=== PATIENT | female | born 1935 | race Caucasian/White ===

== ENCOUNTER 2017-05-10 14:40 | Inpatient (IN) | payer OTHER, BC ==
[~2017-05-10] VITALS: Ht 157.5 cm; Wt 59.6 kg
[2017-05-10] MEDS ORDERED: SODIUM CHLORIDE 0.9% 1000ML 1,000 ML IV STA (15:27)
[2017-05-10] MEDS ORDERED: SODIUM CHLORIDE 0.9% 250ML 250 ML IV STA (15:27)
--- NOTE | 2017-05-10 15:36 | EMERGENCY ROOM VISIT NOTE ---
History Report prepared by Laura: David Mcintosh Under the Supervision of: Dr. Norah Elena M.D. First contact with patient: 15:20 Chief Complaint: FALL Stated Complaint: FALL MONDAY NIGHT, WEAKNESS, DIARRHEA History of Present Illness The patient is an 82 year old female who presents to the Emergency Room with complaints of feeling generally unwell and "lousy" with vomiting for the past two days. Per the patient's daughter, the patient got up from sleep on Monday night, two days ago and tried to go to the bathroom. On her way to the restroom the patient experienced a mechanical fall. She denies any immediate injuries from the fall, and did not hit her head. The patient's son-in-law notes that the patient vomited a small amount on the fall and it looked like "espresso colored." The daughter and son have both noticed loose and black stools over the past two days as well. The daughter added that the patient has been very tired for the past two days and is sleeping most of the day. She did have a blood transfusion in the 1970s and contracted Hep C. The patient has not vomited since the fall, aside from small amounts of mucous. The patient is currently living with her daughter and son-in-law after losing her a few weeks ago. Source of History: patient, family Onset: 2 days IT COMPLIANCE MANAGER Position: other (GI) Quality: other (Black vomit) Associated Symptoms: + fatigue, No headache Note: Mechanical fall Review of Systems See HPI for pertinent positives & negatives. A total of 10 systems reviewed and were otherwise negative. Past Medical & Surgical Medical Problems: (1) Cataract, right eye (2) Chronic hepatitis C (3) COPD (chronic obstructive pulmonary disease) (4) DM II (diabetes mellitus, type II), controlled (5) H/O cataract (6) HTN (hypertension) (7) Lewy body dementia with behavioral disturbance (8) UGIB (upper gastrointestinal bleed) Family History omitted secondary to age. Social History Drug Use: none Marital Status: Housing Status: lives with family Occupation Status: retired Current/Historical Medications Scheduled Amlodipine (Norvasc), 10 MG PO DAILY Aspirin (Aspirin Ec), 81 MG PO DAILY Calcium Carbonate-Vitamin D (Calcium + D3 600-200 mg-Unit), 1 TAB PO BID Hydrochlorothiazide (Hydrochlorothiazide), 12.5 MG PO DAILY Irbesartan (Irbesartan), 300 MG PO DAILY Multiple Vitamins W/ Minerals (Ocuvite), 1 TAB PO BID Scheduled PRN Melatonin (Melatonin), 3 MG PO HS PRN for Insomnia Naproxen Sodium-Diphenhydramin (Aleve Pm 220-25 mg), 1 TAB PO HS PRN for Sleep Allergies Coded Allergies: No Known Allergies (Unverified , 11/09/11) Physical Exam Vital Signs Date Time Temp Pulse Resp B/P (MAP) Pulse Ox O2 Delivery O2 Flow Rate FiO2 05/10/17 20:16 101/47 05/10/17 20:06 85 32 95 05/10/17 20:02 98/53 05/10/17 19:51 80 95 05/10/17 19:46 118/62 05/10/17 19:45 36.7 82 17 118/62 95 05/10/17 19:36 71 32 95 05/10/17 19:32 109/44 05/10/17 19:21 80 29 95 05/10/17 19:16 108/51 05/10/17 19:15 82 32 95 05/10/17 19:15 37.0 88 21 108/51 93 05/10/17 19:13 93 05/10/17 19:09 106/43 05/10/17 19:05 36.7 89 23 106/43 94 05/10/17 19:01 111/47 05/10/17 18:58 36.8 84 26 98/44 94 05/10/17 18:52 98/44 05/10/17 18:45 77 21 92 05/10/17 18:17 36.6 105 27 123/62 95 05/10/17 17:07 80 27 103/41 96 Room Air 05/10/17 16:43 76 23 91/48 93 Room Air 05/10/17 16:18 81 24 112/50 93 05/10/17 16:01 82 23 105/38 95 Room Air 05/10/17 15:30 93 25 98/46 96 Room Air 05/10/17 15:13 86 05/10/17 14:45 36.3 72 16 80/51 96 Physical Exam Vital signs reviewed. Revealed HYPOTENSIVE Vitals. General: Critically ill appearing. In some discomfort. HEENT: No scleral icterus, PERRLA, neck supple. Atraumatic. Dry mucous membranes. Conjunctiva is pale. Cardiovascular: Regular rate and rhythm, no extra sounds. Pulmonary: Clear to auscultation bilaterally, normal work of breathing. Abdomen: Soft, nontender, nondistended, positive bowel sounds. Rectal: Guaiac positive, melanotic stool Musculoskeletal: Atraumatic, no peripheral edema. Neurologic: Patient awake alert and oriented x 3 Skin: Warm, PALE, dry, no rash Medical Decision & Procedures ER Provider Diagnostic Interpretation: Radiology results as stated below per my review and radiologist interpretation: CHEST ONE VIEW PORTABLE CLINICAL HISTORY: weakness, fall, GIB COMPARISON STUDY: No previous studies for comparison. FINDINGS: Lung volumes are normal. There is no pneumothorax or pleural effusion. There is no consolidation or evidence for pulmonary edema. Cardiomediastinal silhouette is unremarkable. IMPRESSION: No acute cardiopulmonary findings. Electronically signed by: Leland Carr M.D. 05/10/2017 3:40 PM Dictated Date/Time: 05/10/2017 3:[address] OF THE HEAD WITHOUT CONTRAST CLINICAL HISTORY: Fall with weakness. COMPARISON STUDY: No previous studies for comparison. CT DOSE: 537.48 mGy.cm TECHNIQUE: Helical axial images of the head were obtained without IV contrast. Automated exposure control was utilized for the study. A dose lowering technique was utilized adhering to the principles of ALARA. FINDINGS: No acute intracranial hemorrhage, midline shift or mass effect is present. Ventricular system is unremarkable for age. There is mild atrophy. White matter hypodensity suggests extensive small vessel disease. There are no findings to suggest acute dural sinus thrombosis or acute territorial infarct. The basilar cisterns are patent. There are no extra-axial collections. There is no calvarial fracture. IMPRESSION: No acute intracranial findings. Electronically signed by: Leland Carr M.D. 05/10/2017 5:04 PM Dictated Date/Time: 05/10/2017 5:02 PM Laboratory Results Test 05/10/17 15:40 05/10/17 15:54 05/10/17 16:30 Polychromasia 1+ Pappenheimer Bodies 1+ [place] Bodies OCCASIONAL Prothrombin Time 10.3 SECONDS (9.0-12.0) Prothromb Time International Ratio 1.0 (0.9-1.1) Activated Partial Thromboplast Time 17.3 SECONDS (21.0-31.0) Partial Thromboplastin Ratio 0.7 Estimated Average Glucose 126 mg/dl Hemoglobin A1c 6.0 % (4.5-5.6) Magnesium Level 1.9 mg/dl (1.8-2.4) Total Bilirubin 0.4 mg/dl (0.2-1) Direct Bilirubin 0.1 mg/dl (0-0.2) Aspartate Amino Transf (AST/SGOT) 16 U/L (15-37) Alanine Aminotransferase (ALT/SGPT) 21 U/L (12-78) Alkaline Phosphatase 67 U/L (45-117) Total Protein 6.2 gm/dl (6.4-8.2) Albumin 2.7 gm/dl (3.4-5.0) Thyroid Stimulating Hormone (TSH) 1.350 uIu/ml (0.300-4.500) Bedside Hemoglobin 7.1 g/dl (12.0-16.0) Bedside Hematocrit 21 % (37-47) Bedside Sodium 141 mEq/L (135-144) Bedside Potassium 3.7 mEq/L (3.3-5.0) Bedside Chloride 101 mEq/L (101-112) Bedside Total CO2 24 mEq/l (24-31) Bedside Blood Urea Nitrogen 85 mg/dl (7-18) Bedside Creatinine 1.7 mg/dl (0.6-1.3) Bedside Glucose (other) 138 mg/dl (70-99) Bedside Ionized Calcium (Gay) 1.29 mmol/l (1.12-1.32) Urine Color YELLOW Urine Appearance CLEAR (CLEAR) Urine pH 5.0 (4.5-7.5) Urine Specific [place] 1.018 (1.000-1.030) Urine Protein NEG (NEG) Urine Glucose (UA) NEG (NEG) Urine Ketones TRACE (NEG) Urine Occult Blood NEG (NEG) Urine Nitrite NEG (NEG) Urine Bilirubin NEG (NEG) Urine Urobilinogen NEG (NEG) Urine Leukocyte Esterase TRACE (NEG) Urine WBC (Auto) 1-5 /hpf (0-5) Urine RBC (Auto) 0-4 /hpf (0-4) Urine Hyaline Casts (Auto) 10-30 /lpf (0-5) Urine Epithelial Cells (Auto) 20-30 /lpf (0-5) Urine Bacteria (Auto) NEG (NEG) Urine Pathogenic Casts 0-3 WBC CASTS /lpf (0) Laboratory results per my review. Medications Administered Medications (Trade) Dose Ordered Sig/Shilpi Route Start Time Stop Time Status Last Admin Dose Admin Sodium Chloride 250 ml @ 999 mls/hr Q16M STAT IV 05/10/17 15:27 05/10/17 15:42 DC 05/10/17 15:27 999 MLS/HR Sodium Chloride 1,000 ml @ 125 mls/hr Q8H STAT IV 05/10/17 15:27 05/10/17 21:35 DC 05/10/17 15:27 125 MLS/HR Pantoprazole Sodium 80 mg/ Dextrose 120 ml @ 480 mls/hr TODAY@1600 ONCE IV 05/10/17 16:00 05/10/17 16:14 DC 05/10/17 16:20 480 MLS/HR Pantoprazole Sodium 40 mg/ Dextrose 100 ml @ 20 mls/hr Q5H IV 05/10/17 16:15 05/10/17 21:14 DC 05/10/17 16:40 20 MLS/HR ECG Per My Interpretation Indication: other (Hypotension, GI Bleed) Rate (beats per minute): 87 Rhythm: sinus with SA, sinus rhythm Findings: PAC, PVC, other (No ST elevation/depression, QTC of 486) ED Course 1525: Past medical records reviewed. The patient was evaluated in room B11B. A complete history and physical examination was performed. 1527: Ordered Sodium Chloride 1000 mL @ 125 mL/hr IV, Sodium Chloride 250 mL @ 999 mL/hr IV. 1600: Ordered Pantoprazole Sodium 80 mg/Dextrose 120 mL @ 480 mL/h IV. 1615: Ordered Pantoprazole Sodium 40 mg/Dextrose 100 @ 20 mL/hr IV. 1810: I discussed the case with Dr. Juliette Cruz Hospitalist at this time. He will evaluate the patient for further treatment. Medical Decision Differential diagnosis: Etiologies such as diverticulosis, AVM, coagulopathy, colitis, inflammatory bowel disease, malignancy, Vivian-Marin tear, esophagitis, peptic ulcer disease , variceal bleed, gastritis, epistaxis, fissure, hemorrhoids, as well as others were entertained. This pt was evaluated and appeared to be in no distress. Pt is noted to be hypotensive at triage. IVF were initiated. H/H is low 7/21 on iSTAT. Stool is melanotic and guaiac positive. Type and cross was obtained, consent was signed. Pt was informed of the findings. She was started on a protonix drip, blood transfusion was initiated. Case was d/w the hospitalist service for further management. Consults Time Called: 1745 Consulting Physician: Dr. Juliette Kim Returned Call: 1809 I discussed the case with Dr. Juliette Kim at this time. He will evaluate the patient for further treatment. Impression Primary Impression: UGIB (upper gastrointestinal bleed) Critical Care I have personally spent greater than 30 minutes of critical care time in the direct management of this patient. This includes bedside care, interpretation of diagnostic studies, and testing, discussion with consultants, patient, and family members, and other required patient management activities. This 30 minutes is in excess of all separately billable procedures. Scribe Attestation The scribe's documentation has been prepared under my direction and personally reviewed by me in its entirety. I confirm that the note above accurately reflects all work, treatment, procedures, and medical decision making performed by me. Departure Information Dispostion Being Evaluated By Hospitalist Referrals Souleymane Connell MD (PCP) Patient Instructions My [facility]
--- NOTE | 2017-05-10 15:41 | DIAGNOSTIC IMAGING REPORT ---
CHEST ONE VIEW PORTABLE CLINICAL HISTORY: weakness, fall, GIB COMPARISON STUDY: No previous studies for comparison. FINDINGS: Lung volumes are normal. There is no pneumothorax or pleural effusion. There is no consolidation or evidence for pulmonary edema. Cardiomediastinal silhouette is unremarkable. IMPRESSION: No acute cardiopulmonary findings. Electronically signed by: Leland Carr M.D. 05/10/2017 3:40 PM Dictated Date/Time: 05/10/2017 3:39 PM
[2017-05-10] MEDS ORDERED: PANTOprazole INJ 80 MG in DEXTROSE 5% 100ML IV ONE (16:00)
[2017-05-10 16:06] LABS: ISTAT CREATININE 1.7 mg/dl (0.6-1.3); ISTAT IONIZED CALCIUM 1.29 mmol/l (1.12-1.32); ISTAT POTASSIUM 3.7 mEq/L (3.3-5.0)
[2017-05-10] MEDS ORDERED: PANTOprazole INJ 40 MG in DEXTROSE 5% 100ML IV SCH (16:15)
[2017-05-10 16:26] LABS: BASO % 0.2 %; BASO ABS # 0.02 K/uL (0-0.2); EOS % 0.2 %; EOS ABS # 0.02 K/uL (0-0.5); HEMATOCRIT 22.6 % (37-47); HEMOGLOBIN 7.9 g/dL (12.0-16.0); IG# 0.03 K/uL (0.00-0.02); LYMPH % 25.3 %; LYMPH ABS # 2.76 K/uL (1.2-3.4); MEAN CELL VOLUME 96.6 fL (80-100); MEAN CORPUSCULAR HEMOGLOBIN 33.8 pg (25-34); MEAN PLATELET VOLUME 9.9 fL (7.4-10.4); MONO % 7.6 %; MONO ABS # 0.83 K/uL (0.11-0.59); NEUT % 66.4 %; NEUT ABS # 7.25 K/uL (1.4-6.5); PLATELET COUNT 322 K/uL (130-400); RED CELL DISTRIBUTION WIDTH CV 13.4 % (11.5-14.5); RED CELL DISTRIBUTION WIDTH SD 47.1 fL (36.4-46.3); WHITE BLOOD COUNT 10.91 K/uL (4.8-10.8)
[2017-05-10 16:44] LABS: ALBUMIN 2.7 gm/dl (3.4-5.0); CREATININE 1.7 mg/dl (0.60-1.20); POTASSIUM 3.6 mmol/L (3.5-5.1)
[2017-05-10 16:45] LABS: PTT PATIENT 17.3 SECONDS (21.0-31.0)
[2017-05-10 16:47] LABS: TOTAL PROTEIN 6.2 gm/dl (6.4-8.2)
--- NOTE | 2017-05-10 17:06 | DIAGNOSTIC IMAGING REPORT ---
CT OF THE HEAD WITHOUT CONTRAST CLINICAL HISTORY: Fall with weakness. COMPARISON STUDY: No previous studies for comparison. CT DOSE: 537.48 mGy.cm TECHNIQUE: Helical axial images of the head were obtained without IV contrast. Automated exposure control was utilized for the study. A dose lowering technique was utilized adhering to the principles of ALARA. FINDINGS: No acute intracranial hemorrhage, midline shift or mass effect is present. Ventricular system is unremarkable for age. There is mild atrophy. White matter hypodensity suggests extensive small vessel disease. There are no findings to suggest acute dural sinus thrombosis or acute territorial infarct. The basilar cisterns are patent. There are no extra-axial collections. There is no calvarial fracture. IMPRESSION: No acute intracranial findings. Electronically signed by: Leland Carr M.D. 05/10/2017 5:04 PM Dictated Date/Time: 05/10/2017 5:02 PM
[2017-05-10 18:17] VITALS: BP 123/62; PULSE 105; TEMP 36.6; O2SAT 95
[2017-05-10] MEDS ORDERED: NAPR-998 PO (18:29)
[2017-05-10] MEDS ORDERED: CALC-388 PO (18:29)
[2017-05-10] MEDS ORDERED: HYDR12.55 PO (18:29)
[2017-05-10] MEDS ORDERED: AMLO-114 PO (18:29)
[2017-05-10] MEDS ORDERED: ASPI81TA28 PO (18:29)
[2017-05-10] MEDS ORDERED: IRBE1TAB50 PO (18:29)
[2017-05-10] MEDS ORDERED: MULT-188 PO (18:29)
[2017-05-10] MEDS ORDERED: MELA3CAP PO (18:29)
[2017-05-10 18:58] VITALS: BP 98/44; PULSE 84; TEMP 36.8; O2SAT 94
[2017-05-10 19:05] VITALS: BP 106/43; PULSE 89; TEMP 36.7; O2SAT 94
[2017-05-10 19:15] VITALS: BP 108/51; PULSE 88; TEMP 37; O2SAT 93
[2017-05-10 19:45] VITALS: BP 118/62; PULSE 82; TEMP 36.7; O2SAT 95
--- NOTE | 2017-05-10 20:09 | History and Physical ---
History & Physical Date & Time of Service: May 10, 2017 at 20:08 Chief Complaint: Fall Monday Night, Weakness, Diarrhea Primary Care Physician: Souleymane Connell MD History of Present Illness Source: patient, family (daughter at bedside), clinic records, hospital records This is an 82yo F with a PMH of HTN, DM II (diet controlled), chronic hepatitis C, Lewy Body dementia who presents with multiple episodes of black stool x 2 days. Patient started feeling poorly 3 nights ago, endorsing fatigue and generalized weakness. Had a mechanical fall while walking to the restroom. Denies any trauma to her head or LOC. Over the next 2 days, patient endorses multiple small black stools. Associated lightheadedness and blurred vision. Denies any syncopal episodes, palpitations or SOB. No abdominal pain, nausea or vomiting. Daughter and son-in-law noticed that patient seemed more tired and weak and brought her into ED for further evaluation. Denies history of GI bleeds. Takes a baby aspirin daily and Advil PM to sleep PRN. Has been living with her daughter and son-in-law since her a few weeks ago. Past Medical/Surgical History Medical Problems: (1) Cataract, right eye Status: Resolved (2) Chronic hepatitis C Status: Chronic (3) COPD (chronic obstructive pulmonary disease) Status: Chronic (4) DM II (diabetes mellitus, type II), controlled Status: Chronic (5) H/O cataract Status: Chronic (6) HTN (hypertension) Status: Chronic (7) Lewy body dementia with behavioral disturbance Status: Chronic Family History Non-contributory 2/2 age. Social History Smoking Status: Former Smoker Alcohol Use: 1-2 drinks daily Drug Use: none Marital Status: Housing status: lives with family Occupational Status: retired Allergies Coded Allergies: No Known Allergies (Unverified , 11/09/11) Home Medications Scheduled Amlodipine (Norvasc), 10 MG PO DAILY Aspirin (Aspirin Ec), 81 MG PO DAILY Calcium Carbonate-Vitamin D (Calcium + D3 600-200 mg-Unit), 1 TAB PO BID Hydrochlorothiazide (Hydrochlorothiazide), 12.5 MG PO DAILY Irbesartan (Irbesartan), 300 MG PO DAILY Multiple Vitamins W/ Minerals (Ocuvite), 1 TAB PO BID Scheduled PRN Melatonin (Melatonin), 3 MG PO HS PRN for Insomnia Naproxen Sodium-Diphenhydramin (Aleve Pm 220-25 mg), 1 TAB PO HS PRN for Sleep Review of Systems Constitutional: + weakness, + fatigue, No fever, No chills, No sweats Eyes: + diplopia, No worsening of vision, No eye pain ENT: No hearing loss, No unusual epistaxis, No nasal symptoms, No sore throat Respiratory: No cough, No sputum, No wheezing, No shortness of breath, No dyspnea on exertion, No dyspnea at rest Cardiovascular: No chest pain, No orthopnea, No PND, No edema, No palpitations Abdomen: No pain, No nausea, No vomiting, No diarrhea, No constipation Musculoskeletal: No joint pain, No muscle pain, No swelling Neurologic: No memory loss, No paralysis, No weakness, No numbness/tingling Integumentary: No rash, No itch, No new/changing skin lesions Physical Exam Vital Signs Date Time Temp Pulse Resp B/P (MAP) Pulse Ox O2 Delivery O2 Flow Rate FiO2 05/10/17 19:45 36.7 82 17 118/62 95 05/10/17 19:16 108/51 05/10/17 19:15 82 32 95 05/10/17 19:15 37.0 88 21 108/51 93 05/10/17 19:13 93 05/10/17 19:09 106/43 05/10/17 19:05 36.7 89 23 106/43 94 05/10/17 19:01 111/47 05/10/17 18:58 36.8 84 26 98/44 94 05/10/17 18:52 98/44 05/10/17 18:45 77 21 92 05/10/17 18:17 36.6 105 27 123/62 95 05/10/17 17:07 80 27 103/41 96 Room Air 05/10/17 16:43 76 23 91/48 93 Room Air 05/10/17 16:18 81 24 112/50 93 05/10/17 16:01 82 23 105/38 95 Room Air 05/10/17 15:30 93 25 98/46 96 Room Air 05/10/17 15:13 86 05/10/17 14:45 36.3 72 16 80/51 96 General Appearance: WD/WN, no apparent distress, + pertinent finding (+ pallor , breathing comfortably on room air ) Head: normocephalic, atraumatic Eyes: normal inspection, PERRL, sclerae normal ENT: normal ENT inspection, hearing grossly normal, pharynx normal (dry mucous membranes ) Neck: supple, thyroid normal, trachea midline Respiratory/Chest: chest non-tender, lungs clear, normal breath sounds, no respiratory distress, no accessory muscle use Cardiovascular: regular rate, rhythm, no murmur, normal peripheral pulses Abdomen/GI: non tender, soft, no organomegaly Back: normal inspection Extremities/Musculoskelatal: normal inspection, no calf tenderness, no pedal edema Neurologic/Psych: no motor/sensory deficits, alert, normal mood/affect, oriented x 3 Skin: warm/dry, + pallor Diagnostics Laboratory Results Results Past 24 Hours Test 05/10/17 15:40 05/10/17 15:54 05/10/17 16:30 05/10/17 19:19 Range/Units White Blood Count 10.91 4.8-10.8 K/uL Red Blood Count 2.34 4.2-5.4 M/uL Hemoglobin 7.9 12.0-16.0 g/dL Hematocrit 22.6 37-47 % Mean Corpuscular Volume 96.6 80-100 fL Mean Corpuscular Hemoglobin 33.8 25-34 pg Mean Corpuscular Hemoglobin Concent 35.0 32-36 g/dl Platelet Count 322 130-400 K/uL Mean Platelet Volume 9.9 7.4-10.4 fL Neutrophils (%) (Auto) 66.4 % Lymphocytes (%) (Auto) 25.3 % Monocytes (%) (Auto) 7.6 % Eosinophils (%) (Auto) 0.2 % Basophils (%) (Auto) 0.2 % Neutrophils # (Auto) 7.25 1.4-6.5 K/uL Lymphocytes # (Auto) 2.76 1.2-3.4 K/uL Monocytes # (Auto) 0.83 0.11-0.59 K/uL Eosinophils # (Auto) 0.02 0-0.5 K/uL Basophils # (Auto) 0.02 0-0.2 K/uL RDW Standard Deviation 47.1 36.4-46.3 fL RDW Coefficient of Variation 13.4 11.5-14.5 % Immature Granulocyte % (Auto) 0.3 % Immature Granulocyte # (Auto) 0.03 0.00-0.02 K/uL Polychromasia 1+ Pappenheimer Bodies 1+ [place] Bodies OCCASIONAL Prothrombin Time 10.3 9.0-12.0 SECONDS Prothromb Time International Ratio 1.0 0.9-1.1 Activated Partial Thromboplast Time 17.3 21.0-31.0 SECONDS Partial Thromboplastin Ratio 0.7 Sodium Level 139 136-145 mmol/L Potassium Level 3.6 3.5-5.1 mmol/L Chloride Level 104 98-107 mmol/L Carbon Dioxide Level 23 21-32 mmol/L Anion Gap 12.0 20.0 16-25 mmol/L Blood Urea Nitrogen 83 7-18 mg/dl Creatinine 1.70 0.60-1.20 mg/dl Est Creatinine Clear Calc Drug Dose 19.8 ml/min Estimated GFR () 31.8 Estimated GFR (Non- 27.4 BUN/Creatinine Ratio 48.6 10-20 Random Glucose 134 70-99 mg/dl Calcium Level 10.0 8.5-10.1 mg/dl Total Bilirubin 0.4 0.2-1 mg/dl Direct Bilirubin 0.1 0-0.2 mg/dl Aspartate Amino Transf (AST/SGOT) 16 15-37 U/L Alanine Aminotransferase (ALT/SGPT) 21 12-78 U/L Alkaline Phosphatase 67 45-117 U/L Total Protein 6.2 6.4-8.2 gm/dl Albumin 2.7 3.4-5.0 gm/dl Bedside Hemoglobin 7.1 12.0-16.0 g/dl Bedside Hematocrit 21 37-47 % Bedside Sodium 141 135-144 mEq/L Bedside Potassium 3.7 3.3-5.0 mEq/L Bedside Chloride 101 101-112 mEq/L Bedside Total CO2 24 24-31 mEq/l Bedside Blood Urea Nitrogen 85 7-18 mg/dl Bedside Creatinine 1.7 0.6-1.3 mg/dl Bedside Glucose (other) 138 70-99 mg/dl Bedside Ionized Calcium (Gay) 1.29 1.12-1.32 mmol/l Urine Color YELLOW Urine Appearance CLEAR CLEAR Urine pH 5.0 4.5-7.5 Urine Specific [place] 1.018 1.000-1.030 Urine Protein NEG NEG Urine Glucose (UA) NEG NEG Urine Ketones TRACE NEG Urine Occult Blood NEG NEG Urine Nitrite NEG NEG Urine Bilirubin NEG NEG Urine Urobilinogen NEG NEG Urine Leukocyte Esterase TRACE NEG Urine WBC (Auto) 1-5 0-5 /hpf Urine RBC (Auto) 0-4 0-4 /hpf Urine Hyaline Casts (Auto) 10-30 0-5 /lpf Urine Epithelial Cells (Auto) 20-30 0-5 /lpf Urine Bacteria (Auto) NEG NEG Urine Pathogenic Casts 0-3 WBC CASTS 0 /lpf Microbiology Results 05/10/17 Urine Culture, Ordered Pending Diagnostic Radiology CT head: IMPRESSION: No acute intracranial findings. CXR: IMPRESSION: No acute cardiopulmonary findings. EKG Sinus rhythm with marked sinus arrhythmia with occasional PACS and aberrant conduction Impression Assessment and Plan This is an 82yo F with a PMH of HTN, DM II (diet controlled), chronic hepatitis C, Lewy Body dementia who presents with multiple episodes of black stool x 2 days. Symptomatic anemia 2/2 upper GI bleed: -Melanotic stools x 2 days -+ Lightheaded, blurred vision -Takes baby aspirin, ibuprofen PRN. Hold these -Hgb of 7.9 -Type and crossed, transfusing 1 u prbcs -Recheck H&H -Keep NPO -GI consult -IVF HTN: -Hypotensive since admission -Continue prbc transfusion, IVF -Hold antihypertensives DM II: -Diet controlled at home -SSI while in-patient DVT Ppx: SCDs Code status: FULL code per my discussion with patient PCP: Ko Dispo: Admitted to telemetry. Patient seen in collaboration with [place]. Please see addendum. Resuscitation Status VTE Prophylaxis Will order VTE Prophylaxis: Yes Assessment/Plan IM ATTENDING : Patient seen and examined. Preceding documentation by Celeste Terrazas PA-C, reviewed. FINAL ASSESSMENT AND PLAN as follows: 1. Upper gastrointestinal bleeding. Differentials include gastritis, peptic ulcer disease, tumor. 2. Hypertension. Blood pressure on the lower side. 3. Acute renal failure on CRI. 4. History of HCV sp treatment. 5. Chronic obstructive pulmonary disease, past tobacco abuse pulmonary status baseline. 6. History of pheochromocytoma status post surgery. 7. DM2, diet controlled well controlled as of recent HgA1c of 5.9 from last year. 8. Asymptomatic pyuria. PCU. Transfuse packed RBC to maintain hemoglobin greater than 7 and/or for symptomatic anemia. hold home ASA, NSAIDS for now until it healed of UGIB found IV PPI for UGIB Hold home antihypertensives for now given borderline BP. Hold home ALFREDO inhibitor until creatinine at baseline. Monitor creatinine response to IVF ISS BG goal 140-180. Patient due for hemoglobin A1c recheck. DVT prophylaxis, SCDs RE GI bleed. Full code.
[2017-05-10 20:55] VITALS: BP 95/57; PULSE 85; TEMP 36.5; O2SAT 96
[2017-05-10] MEDS ORDERED: GLUCAGON FOR INJ 1 MG VIAL SQ PRN (21:00)
[2017-05-10] MEDS ORDERED: LACTATED RINGER'S 1000ML 1,000 ML IV ONE (21:00)
[2017-05-10] MEDS ORDERED: TRAMADOL HCL 50 MG TAB PO PRN (21:00)
[2017-05-10] MEDS ORDERED: GLUCOSE 40% GEL 15 GM TUBE PO PRN (21:00)
[2017-05-10] MEDS ORDERED: HYDROmorphone INJ 0.5 MG/0.5 ML SYR IV PRN (21:00)
[2017-05-10] MEDS ORDERED: NITROGLYCERIN 0.4 MG SL PER TAB CHARGE SL PRN (21:00)
[2017-05-10] MEDS ORDERED: PROCHLORPERAZINE INJ 5 MG in SYRINGE 4 ML IV PRN (21:00)
[2017-05-10] MEDS ORDERED: DEXTROSE 50% 50 ML SYR IV PRN (21:00)
[2017-05-10] MEDS ORDERED: GLUCOSE 10 TABS/TUBE PO PRN (21:00)
[2017-05-10] MEDS ORDERED: ACETAMINOPHEN 325 MG TAB PO PRN (21:00)
[2017-05-11] VITALS (12 sets, daily range): BP systolic 91–120; BP diastolic 42–62; PULSE 70–89; TEMP 36.4–37.2; O2SAT 90–98; Ht 157.5 cm; Wt 59.6 kg
[2017-05-11] MEDS: PANTOprazole INJ 40 MG in DEXTROSE 5% 100ML 100 ML IV SCH ×5 (01:46→22:08)
[2017-05-11 02:26] LABS: HEMATOCRIT 24.4 % (37-47); HEMOGLOBIN 8.5 g/dL (12.0-16.0)
[2017-05-11] MEDS: LACTATED RINGER'S 1000ML 1,000 ML IV SCH ×2 (02:35→22:08)
[2017-05-11] MEDS: CEROVITE ADV FORMULA TAB PO SCH ×3 (02:35→21:00)
[2017-05-11] MEDS: INSULIN ASPART 100 UNITS/ML 3 ML PEN SC SCH ×5 (02:36→23:49)
--- NOTE | 2017-05-11 04:19 | HISTORY & PHYSICAL EXAMINATION ---
DATE OF ADMISSION: 05/10/2017 IM ATTENDING : Patient seen and examined. Preceding documentation by Celeste Terrazas PA-C, reviewed. FINAL ASSESSMENT AND PLAN as follows: 1. Upper gastrointestinal bleeding. Differentials include gastritis, peptic ulcer disease, tumor. 2. Hypertension. Blood pressure on the lower side. 3. Acute renal failure on CRI. 4. History of HCV sp treatment. 5. Chronic obstructive pulmonary disease, past tobacco abuse pulmonary status baseline. 6. History of pheochromocytoma status post surgery. 7. DM2, diet controlled well controlled as of recent HgA1c of 5.9 from last year. 8. Asymptomatic pyuria. PCU. Transfuse packed RBC to maintain hemoglobin greater than 7 and/or for symptomatic anemia. hold home ASA, NSAIDS for now until it healed of UGIB found IV PPI for UGIB Hold home antihypertensives for now given borderline BP. Hold home ALFREDO inhibitor until creatinine at baseline. Monitor creatinine response to IVF ISS BG goal 140-180. Patient due for hemoglobin A1c recheck. DVT prophylaxis, SCDs RE GI bleed. Full code. MTDD
[2017-05-11 05:33] LABS: BASO % 0.2 %; BASO ABS # 0.02 K/uL (0-0.2); EOS % 1.3 %; EOS ABS # 0.11 K/uL (0-0.5); HEMATOCRIT 22.2 % (37-47); HEMOGLOBIN 7.9 g/dL (12.0-16.0); IG# 0.01 K/uL (0.00-0.02); MEAN CELL VOLUME 91.4 fL (80-100); MEAN CORPUSCULAR HEMOGLOBIN 32.5 pg (25-34); MEAN CORPUSCULAR HGB CONC 35.6 g/dl (32-36); MEAN PLATELET VOLUME 9.7 fL (7.4-10.4); MONO % 10.4 %; NEUT ABS # 5.04 K/uL (1.4-6.5); PLATELET COUNT 229 K/uL (130-400); RED CELL DISTRIBUTION WIDTH CV 15.2 % (11.5-14.5); RED CELL DISTRIBUTION WIDTH SD 51.1 fL (36.4-46.3); WHITE BLOOD COUNT 8.68 K/uL (4.8-10.8)
[2017-05-11 05:42] LABS: CALCIUM 9.1 mg/dl (8.5-10.1); CREATININE 1.43 mg/dl (0.60-1.20); POTASSIUM 3.4 mmol/L (3.5-5.1)
--- NOTE | 2017-05-11 07:07 | Clinical Documentation Query ---
QUERY 1 OF [address] PATINO, In your clinical opinion is this patient being managed for: ( ) Chronic kidney disease, stage 3 ( ) Not Agree ( ) Other explanation of clinical findings (Please Explain) ( ) Unable to determine (Please Define) ( ) Need to Discuss The medical record reflects the following clinical findings, treatment, and risk factors. Clinical Indicators: 82 yo female presenting with symptomatic anemia. H/P notes pt with Chronic renal insufficiency. Historical GFR information extremely limited. GFR this am 33.8 Treatment: monitor PRP's, treat comorbid conditions Risk Factors: age, HTN, DM QUERY 2 OF 2 In your clinical opinion is this patient being managed for: ( ) Acute blood loss anemia ( ) Not Agree ( ) Other explanation of clinical findings (Please Explain) ( ) Unable to determine (Please Define) ( ) Need to Discuss The medical record reflects the following clinical findings, treatment, and risk factors. Clinical Indicators: Hgb 7.9, Hct 22.6. Pt with espresso colored emesis and black tarry stools Treatment: 1U PRBC, NPO, GI consult, IV fluids, IV protonix gtt Risk Factors: GI bleed Please clarify and document your clinical opinion in the progress notes and discharge summary. Terms such as "probable", "suspected", "likely", "questionable", "possible", or "still to be ruled out" are acceptable. IF IN AGREEMENT, YOU MUST DOCUMENT ABOVE DIAGNOSTIC STATEMENT IN DAILY PROGRESS NOTES AND DISCHARGE SUMMARY. This document is not part of the patient's record. Thank You, Latosha Woodward, RN [phone]
--- NOTE | 2017-05-11 09:26 | Gastrointestinal Consultation ---
Gastrointestinal Consultation Date of Consultation: May 11, 2017 Attending Physician: Theodora Consulting Physician: Darrell Reason for Consultation: UGIB History of Present Illness Patient is a 82 year old female w/ history of HCV, T2DM, HTN, dementia who presented to the ED from following for weakness, fatigue and fall three nights ago - GI was asked to evaluate the pt for report of numerouds black stools x 2 days. Pt was seen and evaluated, chart reviewed. No family at bedside. Pt is a poor historian, is only alert to person. She does recall some events appropriately. I asked her why she is in the ED she said she fell going to the bathroom a few days ago and her family as concerned. She denies any abdominal pain, nausea, vomiting. She tells me she moves her bowels daily, she is unsure if she has black or bloody stools as she does not look. Denies fever, chills, CP , SOB. Past Medical/Surgical History Medical Problems: (1) GI bleed Status: Acute Past Medical History: HCV, COPD, T2DM, cataract, HTN, dementia Past Surgical History: pt denies any Social History Smoking Status: Former Smoker Drug Use: none Marital Status: Housing Status: lives with family Occupation Status: retired Allergies Coded Allergies: No Known Allergies (Unverified , 11/09/11) Current Medications Home Meds and Scripts Medications Dose Route/Sig Max Daily Dose Days Date Category Aspirin Ec (Aspirin) 81 Mg Tab 81 Mg PO DAILY 05/10/17 Reported Irbesartan 300 Mg Tab 300 Mg PO DAILY 05/10/17 Reported Norvasc (Amlodipine Besylate) 10 Mg Tab 10 Mg PO DAILY 05/10/17 Reported Calcium + D3 600-200 mg-Unit (Calcium Carbonate-Vitamin D) 1 Tab Tab 1 Tab PO BID 05/10/17 Reported Ocuvite (Multiple Vitamins W/ Minerals) 1 Tab Tab 1 Tab PO BID 05/10/17 Reported Melatonin 3 Mg Cap 3 Mg PO HS PRN 05/10/17 Reported Aleve Pm 220-25 mg (Naproxen Sodium-Diphenhydramin) 1 Tab Tab 1 Tab PO HS PRN 05/10/17 Reported Hydrochlorothiazide 12.5 Mg Tab 12.5 Mg PO DAILY 05/10/17 Reported Review of Systems Constitutional: + weakness, + fatigue, No fever, No chills, No sweats, No weight loss ENT: No hearing loss, No unusual epistaxis, No tinnitus, No trouble swallowing Respiratory: + shortness of breath, No cough, No sputum Cardiac: No chest pain, No edema, No palpitations Abdomen: No pain, No nausea, No vomiting, No diarrhea, No constipation, No GI bleeding, No dysphagia, No odynophagia, No acolic stools, No jaundice Neuro: + weakness Endo: + fatigue Skin: No rash, No itch, No color change, No bleeding, No jaundice Physical Exam Date Time Temp Pulse Resp B/P (MAP) Pulse Ox O2 Delivery O2 Flow Rate FiO2 05/11/17 08:00 Room Air 05/11/17 06:34 65 05/11/17 05:35 88 102/42 (62) 05/11/17 03:09 67 05/11/17 01:40 37.0 86 18 102/42 96 Room Air 05/11/17 01:01 108/51 05/11/17 00:52 92 26 92 05/11/17 00:31 115/53 05/11/17 00:22 96 28 95 05/11/17 00:01 100/41 05/10/17 23:52 84 22 95 05/10/17 23:47 113/56 05/10/17 23:36 88 29 96 05/10/17 23:31 105/49 05/10/17 23:21 87 23 93 05/10/17 23:16 109/47 05/10/17 23:07 86 05/10/17 23:06 85 30 93 05/10/17 23:01 103/49 05/10/17 22:51 88 23 93 05/10/17 22:46 109/39 05/10/17 22:36 83 27 95 05/10/17 22:31 106/46 05/10/17 22:21 83 24 96 05/10/17 22:16 110/53 05/10/17 22:11 28 05/10/17 22:01 122/57 05/10/17 21:56 92 22 05/10/17 21:46 101/47 05/10/17 21:41 82 19 92 05/10/17 21:32 112/44 05/10/17 21:26 75 28 94 05/10/17 21:16 122/71 05/10/17 21:11 83 28 94 05/10/17 21:06 79 24 96 05/10/17 21:01 110/55 05/10/17 20:56 94/56 05/10/17 20:55 36.5 85 23 95/57 96 05/10/17 20:51 93 25 92 05/10/17 20:46 95/57 05/10/17 20:36 80 95 05/10/17 20:32 131/44 05/10/17 20:21 83 27 95 05/10/17 20:16 101/47 05/10/17 20:06 85 32 95 05/10/17 20:02 98/53 05/10/17 19:51 80 95 05/10/17 19:46 118/62 05/10/17 19:45 36.7 82 17 118/62 95 05/10/17 19:36 71 32 95 05/10/17 19:32 109/44 05/10/17 19:21 80 29 95 05/10/17 19:16 108/51 05/10/17 19:15 82 32 95 05/10/17 19:15 37.0 88 21 108/51 93 05/10/17 19:13 93 05/10/17 19:09 106/43 05/10/17 19:05 36.7 89 23 106/43 94 05/10/17 19:01 111/47 05/10/17 18:58 36.8 84 26 98/44 94 05/10/17 18:52 98/44 05/10/17 18:45 77 21 92 05/10/17 18:17 36.6 105 27 123/62 95 05/10/17 17:07 80 27 103/41 96 Room Air 05/10/17 16:43 76 23 91/48 93 Room Air 05/10/17 16:18 81 24 112/50 93 05/10/17 16:01 82 23 105/38 95 Room Air 05/10/17 15:30 93 25 98/46 96 Room Air 05/10/17 15:13 86 05/10/17 14:45 36.3 72 16 80/51 96 General Appearance: no apparent distress Eyes: PERRL ENT: hearing grossly normal, TMs normal Neck: supple, thyroid normal, trachea midline Respiratory/Chest: lungs clear, normal breath sounds, no respiratory distress, no accessory muscle use Cardiovascular: regular rate, rhythm, no edema, no gallop, no JVD, no murmur Abdomen: normal bowel sounds, non tender, soft, no organomegaly Neurologic/Psych: alert, normal mood/affect, + pertinent finding (alert to person) Skin: normal color, no jaundice, warm/dry, no rash Laboratory Results Last 24 Hours Test 05/10/17 15:40 05/10/17 15:54 05/10/17 16:30 05/10/17 20:18 White Blood Count 10.91 K/uL Red Blood Count 2.34 M/uL Hemoglobin 7.9 g/dL Hematocrit 22.6 % Mean Corpuscular Volume 96.6 fL Mean Corpuscular Hemoglobin 33.8 pg Mean Corpuscular Hemoglobin Concent 35.0 g/dl Platelet Count 322 K/uL Mean Platelet Volume 9.9 fL Neutrophils (%) (Auto) 66.4 % Lymphocytes (%) (Auto) 25.3 % Monocytes (%) (Auto) 7.6 % Eosinophils (%) (Auto) 0.2 % Basophils (%) (Auto) 0.2 % Neutrophils # (Auto) 7.25 K/uL Lymphocytes # (Auto) 2.76 K/uL Monocytes # (Auto) 0.83 K/uL Eosinophils # (Auto) 0.02 K/uL Basophils # (Auto) 0.02 K/uL RDW Standard Deviation 47.1 fL RDW Coefficient of Variation 13.4 % Immature Granulocyte % (Auto) 0.3 % Immature Granulocyte # (Auto) 0.03 K/uL Polychromasia 1+ Pappenheimer Bodies 1+ Hollingsworth-Arena Bodies OCCASIONAL Prothrombin Time 10.3 SECONDS Prothromb Time International Ratio 1.0 Activated Partial Thromboplast Time 17.3 SECONDS Partial Thromboplastin Ratio 0.7 Sodium Level 139 mmol/L Potassium Level 3.6 mmol/L Chloride Level 104 mmol/L Carbon Dioxide Level 23 mmol/L Anion Gap 12.0 mmol/L 20.0 mmol/L Blood Urea Nitrogen 83 mg/dl Creatinine 1.70 mg/dl Est Creatinine Clear Calc Drug Dose 19.8 ml/min Estimated GFR () 31.8 Estimated GFR (Non- 27.4 BUN/Creatinine Ratio 48.6 Random Glucose 134 mg/dl Estimated Average Glucose 126 mg/dl Hemoglobin A1c 6.0 % Calcium Level 10.0 mg/dl Magnesium Level 1.9 mg/dl Total Bilirubin 0.4 mg/dl Direct Bilirubin 0.1 mg/dl Aspartate Amino Transf (AST/SGOT) 16 U/L Alanine Aminotransferase (ALT/SGPT) 21 U/L Alkaline Phosphatase 67 U/L Total Protein 6.2 gm/dl Albumin 2.7 gm/dl Thyroid Stimulating Hormone (TSH) 1.350 uIu/ml Bedside Hemoglobin 7.1 g/dl Bedside Hematocrit 21 % Bedside Sodium 141 mEq/L Bedside Potassium 3.7 mEq/L Bedside Chloride 101 mEq/L Bedside Total CO2 24 mEq/l Bedside Blood Urea Nitrogen 85 mg/dl Bedside Creatinine 1.7 mg/dl Bedside Glucose (other) 138 mg/dl Bedside Ionized Calcium (Gay) 1.29 mmol/l Urine Color YELLOW Urine Appearance CLEAR Urine pH 5.0 Urine Specific [place] 1.018 Urine Protein NEG Urine Glucose (UA) NEG Urine Ketones TRACE Urine Occult Blood NEG Urine Nitrite NEG Urine Bilirubin NEG Urine Urobilinogen NEG Urine Leukocyte Esterase TRACE Urine WBC (Auto) 1-5 /hpf Urine RBC (Auto) 0-4 /hpf Urine Hyaline Casts (Auto) 10-30 /lpf Urine Epithelial Cells (Auto) 20-30 /lpf Urine Bacteria (Auto) NEG Urine Pathogenic Casts 0-3 WBC CASTS /lpf Lactic Acid Level 2.3 mmol/L Ammonia 28.0 umol/L Test 05/11/17 01:58 05/11/17 02:33 05/11/17 05:18 05/11/17 06:41 Hemoglobin 8.5 g/dL 7.9 g/dL Hematocrit 24.4 % 22.2 % Lactic Acid Level 1.0 mmol/L Bedside Glucose 123 mg/dl 139 mg/dl White Blood Count 8.68 K/uL Red Blood Count 2.43 M/uL Mean Corpuscular Volume 91.4 fL Mean Corpuscular Hemoglobin 32.5 pg Mean Corpuscular Hemoglobin Concent 35.6 g/dl Platelet Count 229 K/uL Mean Platelet Volume 9.7 fL Neutrophils (%) (Auto) 58.0 % Lymphocytes (%) (Auto) 30.0 % Monocytes (%) (Auto) 10.4 % Eosinophils (%) (Auto) 1.3 % Basophils (%) (Auto) 0.2 % Neutrophils # (Auto) 5.04 K/uL Lymphocytes # (Auto) 2.60 K/uL Monocytes # (Auto) 0.90 K/uL Eosinophils # (Auto) 0.11 K/uL Basophils # (Auto) 0.02 K/uL RDW Standard Deviation 51.1 fL RDW Coefficient of Variation 15.2 % Immature Granulocyte % (Auto) 0.1 % Immature Granulocyte # (Auto) 0.01 K/uL Red Blood Cell Morphology Unremarkable Sodium Level 141 mmol/L Potassium Level 3.4 mmol/L Chloride Level 108 mmol/L Carbon Dioxide Level 23 mmol/L Anion Gap 10.0 mmol/L Blood Urea Nitrogen 74 mg/dl Creatinine 1.43 mg/dl Est Creatinine Clear Calc Drug Dose 23.6 ml/min Estimated GFR () 39.2 Estimated GFR (Non- 33.8 BUN/Creatinine Ratio 51.4 Random Glucose 135 mg/dl Calcium Level 9.1 mg/dl Impression Patient is a 82 year old female w/ HCV, dementia admitted for anemia, report of melena. Pt is on PPI drip, s/p transfusion x 1 w/ HGB 7.9. BP 102/42 w/ pulse 62 She does history of HCV, labs do not present as cirrhosis: Gastritis vs PUD vs variceal hemorrhage vs other Plan Monitor stools Trend H&H Transfuse PRN PPI bolus and drip NPO EGD ATTESTATION: I have performed a history and physical examination of this patient and reviewed the electronic record. Specifically, on physical examination there is no abdominal tenderness. I have discussed the case with MELLISSA Mills. The above note reflects my findings, conclusions, and recommendations. Prieto Ramírez MD
[2017-05-11] MEDS ORDERED: PROPOFOL IV EMULSION 10 MG/ML 20 ML VIAL IV ONE (11:13)
[2017-05-11] MEDS ORDERED: LIDOCAINE HCL 2% 2 ML VIAL (20MG/ML) ONE (11:13)
--- NOTE | 2017-05-11 11:53 | GI REPORT ---
Procedure Date: 05/11/2017 11:22 AM Procedure: Upper GI endoscopy Indications: Iron deficiency anemia secondary to chronic blood loss, Melena Medicines: Monitored Anesthesia Care Complications: No immediate complications. Estimated blood loss: None. Estimated Blood Loss: Estimated blood loss: none. Procedure: Pre-Anesthesia Assessment: - Prior to the procedure, a History and Physical was performed, and patient medications, allergies and sensitivities were reviewed. The patient's tolerance of previous anesthesia was reviewed. - ASA Grade Assessment: III - A patient with severe systemic disease. After obtaining informed consent, the endoscope was passed under direct vision. Throughout the procedure, the patient's blood pressure, pulse, and oxygen saturations were monitored continuously. The scope was introduced through the mouth, and advanced to the third part of duodenum. The upper GI endoscopy was accomplished without difficulty. The patient tolerated the procedure well. Findings: The examined esophagus was normal. Clotted blood was found on the greater curvature of the stomach. Biopsies were taken with a cold forceps for Helicobacter pylori testing. One oozing cratered duodenal ulcer with adherent clot was found in the duodenal bulb. The lesion was 4 mm in largest dimension. Area was successfully injected with 10 mL of a 1:10,000 solution of epinephrine for hemostasis. Coagulation for hemostasis using bipolar probe was successful. Verification of patient identification for the specimen was done by the physician and nurse using the patient's name, date and medical record number. Impression: - Normal esophagus. - Clotted blood in the greater curvature of the stomach. Biopsied. - One oozing duodenal ulcer with adherent clot. Injected. Treated with bipolar cautery. Recommendation: - [facility] for ongoing care. Prieto Ramírez M.D. Prieto Ramírez MD 05/11/2017 11:53:00 AM This report has been signed electronically. Note Initiated On: 05/11/2017 11:22 AM I attest to the content of the Intraoperative Record and orders documented therein, exceptions below
--- NOTE | 2017-05-11 12:40 | Anesthesiology Progress Note ---
Anesthesia Post Op Note Date & Time May 11, 2017 at 12:39 Vital Signs Pain Intensity: 0 Vital Signs Past 12 Hours Date Time Temp Pulse Resp B/P (MAP) Pulse Ox O2 Delivery O2 Flow Rate FiO2 05/11/17 12:31 77 20 119/44 (69) 93 Room Air 05/11/17 12:20 77 20 102/50 (67) 94 Room Air 05/11/17 12:15 76 20 116/52 (73) 94 Room Air 05/11/17 12:03 81 16 116/41 (66) 95 Room Air 05/11/17 11:56 84 20 100/47 (64) 94 Room Air 05/11/17 10:54 36.8 82 16 104/45 98 05/11/17 10:16 37.0 86 18 114/47 (69) 95 Room Air 05/11/17 08:00 36.8 104/45 (64) 98 Room Air 05/11/17 08:00 Room Air 05/11/17 06:34 65 05/11/17 05:35 88 102/42 (62) 05/11/17 03:09 67 05/11/17 01:40 37.0 86 18 102/42 96 Room Air 05/11/17 01:01 108/51 05/11/17 00:52 92 26 92 Notes Mental Status: alert / awake / arousable, participated in evaluation Pt Amnestic to Procedure: Yes Nausea / Vomiting: adequately controlled Pain: adequately controlled Airway Patency, RR, SpO2: stable & adequate BP & HR: stable & adequate Hydration State: stable & adequate Anesthetic Complications: no major complications apparent pt complaining of some epigastric pain after having epi injections and bipolar for an ulcer - otherwise feeling okay but tired.
[2017-05-11 14:03] LABS: HEMATOCRIT 18.9 % (37-47); HEMOGLOBIN 6.6 g/dL (12.0-16.0)
--- NOTE | 2017-05-11 14:17 | Progress Note ---
Progress Note Date of Service May 11, 2017. Progress Note Pt is s/p EGD w/ Normal esophagus, clotted blood in the greater curvature of the stomach, an oozing duodenal ulcer with adherent clot, treated with bipolar cautery. NPO Continue IV PPI Trend H&H Transfuse PRN Monitor stools If count is stable can advance to clear liquids as tolerated.
[2017-05-11] MEDS ORDERED: NURSING VERBAL MED ORDER ONE (15:30)
--- NOTE | 2017-05-11 17:52 | Progress Note ---
Internal Med Progress Note Date of Service: May 11, 2017. Provider Documentation: SUBJECTIVE: s/p egd resting comfortably denies any nausea or abdominal pain no chest pain afebrile comfortable family in room this is first time she had Gi bleeding OBJECTIVE: Vital Signs-as noted below Exam: General-alert and Oriented. Not in distress. ENT-Normal hearing Neck-no neck masses Lungs-cta b/l no wheezing or crackles Heart-s1 and s2 heard regular no murmurs Abdomen-soft bowel sounds present non tender no distension Extremities-no edema present and no erythema Neuro-alert and awake moves extremities Lab data as noted below. ASSESSMENT & PLAN: 1. Upper gastrointestinal bleeding. s/p egd:an oozing duodenal ulcer with adherent clot, treated with bipolar cautery. on ppi drip transfusing two units of prbc f/u h and h closely npo today monitor in tele. 2.Acute blood loss anemia from above s/p prbc hb 8.8 2. Hypertension. Blood pressure on the lower side.Will monitor 3. Acute renal failure on CKD stage 3 baseline cr 1.4 to 1.5 .presented with Cr 1.7 cr 1.4 today will f/u labs. 4. History of HCV sp treatment. 5. Chronic obstructive pulmonary disease, past tobacco abuse pulmonary status baseline. 6. History of pheochromocytoma status post surgery. 7. DM2, diet controlled well controlled as of recent HgA1c of 5.9 from last year. 8. Asymptomatic pyuria DVT PROPHYLAXIS scds DISPOSITION monitor in tele Vital Signs: Date Time Temp Pulse Resp B/P (MAP) Pulse Ox O2 Delivery O2 Flow Rate FiO2 05/12/17 04:35 36.9 90 23 105/55 (72) 92 Room Air 05/12/17 04:00 Room Air 05/11/17 23:59 Room Air 05/11/17 23:35 37.2 89 20 110/51 (70) 94 Room Air 05/11/17 20:00 Room Air 05/11/17 19:16 36.7 70 20 120/58 (78) 98 Nasal Cannula 2.0 05/11/17 16:58 80 14 103/55 97 05/11/17 16:30 70 104/47 97 2.0 05/11/17 16:00 36.4 Room Air 05/11/17 16:00 36.6 79 91/62 98 05/11/17 16:00 Room Air 05/11/17 15:35 36.8 76 16 103/53 98 05/11/17 15:20 36.6 78 16 100/49 97 2.0 05/11/17 15:05 36.4 71 14 104/52 98 2.0 05/11/17 13:19 36.8 86 20 102/45 (64) 90 Room Air 05/11/17 12:31 77 20 119/44 (69) 93 Room Air 05/11/17 12:20 77 20 102/50 (67) 94 Room Air 05/11/17 12:15 76 20 116/52 (73) 94 Room Air 05/11/17 12:03 81 16 116/41 (66) 95 Room Air 05/11/17 11:56 84 20 100/47 (64) 94 Room Air 05/11/17 10:54 36.8 82 16 104/45 98 05/11/17 10:16 37.0 86 18 114/47 (69) 95 Room Air 05/11/17 08:00 36.8 104/45 (64) 98 Room Air 05/11/17 08:00 Room Air Lab Results: Results Past 24 Hours Test 05/11/17 13:11 05/11/17 13:42 05/11/17 17:52 05/11/17 19:08 Range/Units Bedside Glucose 197 121 70-90 mg/dl Hemoglobin 6.6 8.8 12.0-16.0 g/dL Hematocrit 18.9 24.9 37-47 % Test 05/11/17 23:45 05/12/17 05:41 05/12/17 06:08 Range/Units Bedside Glucose 122 116 70-90 mg/dl White Blood Count 7.69 4.8-10.8 K/uL Red Blood Count 2.66 4.2-5.4 M/uL Hemoglobin 8.4 12.0-16.0 g/dL Hematocrit 24.0 37-47 % Mean Corpuscular Volume 90.2 80-100 fL Mean Corpuscular Hemoglobin 31.6 25-34 pg Mean Corpuscular Hemoglobin Concent 35.0 32-36 g/dl Platelet Count 185 130-400 K/uL Mean Platelet Volume 10.2 7.4-10.4 fL Neutrophils (%) (Auto) 53.3 % Lymphocytes (%) (Auto) 33.3 % Monocytes (%) (Auto) 11.2 % Eosinophils (%) (Auto) 1.7 % Basophils (%) (Auto) 0.1 % Neutrophils # (Auto) 4.10 1.4-6.5 K/uL Lymphocytes # (Auto) 2.56 1.2-3.4 K/uL Monocytes # (Auto) 0.86 0.11-0.59 K/uL Eosinophils # (Auto) 0.13 0-0.5 K/uL Basophils # (Auto) 0.01 0-0.2 K/uL RDW Standard Deviation 52.2 36.4-46.3 fL RDW Coefficient of Variation 16.2 11.5-14.5 % Immature Granulocyte % (Auto) 0.4 % Immature Granulocyte # (Auto) 0.03 0.00-0.02 K/uL Sodium Level 142 136-145 mmol/L Potassium Level 3.0 3.5-5.1 mmol/L Chloride Level 112 98-107 mmol/L Carbon Dioxide Level 21 21-32 mmol/L Anion Gap 9.0 3-11 mmol/L Blood Urea Nitrogen 56 7-18 mg/dl Creatinine 1.18 0.60-1.20 mg/dl Est Creatinine Clear Calc Drug Dose 28.6 ml/min Estimated GFR () 49.4 Estimated GFR (Non- 42.6 BUN/Creatinine Ratio 47.6 10-20 Random Glucose 118 70-99 mg/dl Calcium Level 8.2 8.5-10.1 mg/dl
[2017-05-11 19:20] LABS: HEMATOCRIT 24.9 % (37-47); HEMOGLOBIN 8.8 g/dL (12.0-16.0)
[2017-05-12] MEDS: PANTOprazole INJ 40 MG in DEXTROSE 5% 100ML 100 ML IV SCH ×5 (02:37→22:26)
[2017-05-12 04:35] VITALS: BP 105/55; PULSE 90; TEMP 36.9; O2SAT 92
[2017-05-12] MEDS: INSULIN ASPART 100 UNITS/ML 3 ML PEN SC SCH ×4 (05:47→21:37)
[2017-05-12 06:36] LABS: BASO % 0.1 %; BASO ABS # 0.01 K/uL (0-0.2); EOS % 1.7 %; EOS ABS # 0.13 K/uL (0-0.5); HEMOGLOBIN 8.4 g/dL (12.0-16.0); IG# 0.03 K/uL (0.00-0.02); LYMPH % 33.3 %; LYMPH ABS # 2.56 K/uL (1.2-3.4); MEAN CELL VOLUME 90.2 fL (80-100); MEAN CORPUSCULAR HEMOGLOBIN 31.6 pg (25-34); MEAN PLATELET VOLUME 10.2 fL (7.4-10.4); MONO % 11.2 %; MONO ABS # 0.86 K/uL (0.11-0.59); NEUT % 53.3 %; PLATELET COUNT 185 K/uL (130-400); RED CELL DISTRIBUTION WIDTH CV 16.2 % (11.5-14.5); RED CELL DISTRIBUTION WIDTH SD 52.2 fL (36.4-46.3); WHITE BLOOD COUNT 7.69 K/uL (4.8-10.8)
[2017-05-12 07:04] LABS: CALCIUM 8.2 mg/dl (8.5-10.1); CREATININE 1.18 mg/dl (0.60-1.20)
[2017-05-12 08:01] VITALS: BP 105/54; PULSE 81; TEMP 36.9; O2SAT 93
[2017-05-12] MEDS: CEROVITE ADV FORMULA TAB PO SCH ×2 (08:12→21:30)
[2017-05-12] MEDS ORDERED: POTASSIUM CHLORIDE 20 MEQ TABCR PO ONE (09:30)
[2017-05-12] MEDS: POTASSIUM CHLR 10 MEQ / WTR 10 MEQ in PREMIXED WATER 100 ML IV SCH ×2 (09:41→10:58)
[2017-05-12] MEDS ORDERED: NURSING VERBAL MED ORDER ONE ×2 (09:45→17:15)
--- NOTE | 2017-05-12 10:00 | Gastroenterology Progress Note ---
Progress Note Date of Service: May 12, 2017 Subjective Pt evaluation today including: conversation w/ patient, physical exam, chart review, lab review Pt was seen and evaluated, chart reviewed. Has had one BM since EGD yesterday. Semi-formed and black. No BRBPR. No abdominal pain, nausea or vomiting. Feels weak and tired, otherwise no complaints. Wants to go home. No fever, chills, CP , SOB. S/P transfusion x 2 units w/ HGB 8.4. She is alert, oriented to person, not place or time. Does recall events of EGD yesterday. EGD w/ Normal esophagus, clotted blood in the greater curvature of the stomach, an oozing duodenal ulcer with adherent clot, treated with bipolar cautery. Review of Systems Constitutional: + weakness, + fatigue, No fever, No chills, No sweats, No weight loss Respiratory: No cough, No sputum, No wheezing, No shortness of breath, No hemoptysis Cardiac: No chest pain, No orthopnea, No edema, No palpitations Abdomen: No pain, No nausea, No vomiting, No diarrhea, No constipation, No GI bleeding, No dysphagia, No odynophagia, No jaundice, No dark urine Medications Current Inpatient Medications Medications (Trade) Dose Ordered Sig/Shilpi Route Start Time Stop Time Status Last Admin Dose Admin Lactated Ringer's 1,000 ml @ 50 mls/hr Q20H IV 05/11/17 01:00 06/10/17 00:59 05/11/17 22:08 50 MLS/HR Acetaminophen (Tylenol Tab) 325 mg Q6H PRN PO 05/10/17 21:00 06/09/17 20:59 Nitroglycerin (Nitrostat Tab) 0.4 mg UD PRN SL 05/10/17 21:00 06/09/17 20:59 Glucose (Glucose 40% Gel) 15-30 GRAMS 15 GRAMS... UD PRN PO 05/10/17 21:00 06/09/17 20:59 Glucose (Glucose Chew Tab) 4-8 Tablets 4 Tabl... UD PRN PO 05/10/17 21:00 06/09/17 20:59 Dextrose (Dextrose 50% 50ML Syringe) 25-50ML OF 50% DW IV FOR... UD PRN IV 05/10/17 21:00 06/09/17 20:59 Glucagon (Glucagon Inj) 1 mg UD PRN SQ 05/10/17 21:00 06/09/17 20:59 Hydromorphone HCl (Dilaudid Inj) 0.5 mg Q3H PRN IV 05/10/17 21:00 05/24/17 20:59 Tramadol HCl (Ultram Tab) 25 mg Q6H PRN PO 05/10/17 21:00 06/09/17 20:59 Prochlorperazine Edisylate 5 mg/ Syringe 5 ml @ 5 mls/min Q6H PRN IV 05/10/17 21:00 06/09/17 20:59 Multivitamins/ Minerals (Multivitamin W/ Minerals Tab) 1 tab BID PO 05/10/17 21:00 06/09/17 20:59 05/11/17 02:35 1 TAB Pantoprazole Sodium 40 mg/ Dextrose 110 ml @ 20 mls/hr Q5H IV 05/10/17 23:30 06/09/17 23:29 05/12/17 08:12 20 MLS/HR Potassium Chloride 10 meq/ Prmx 100 ml @ 100 mls/hr Q1H IV 05/12/17 09:30 05/12/17 11:29 05/12/17 09:41 100 MLS/HR Insulin Aspart (novoLOG ASPART) SLIDING SCALE If C... ACHS SC 05/12/17 11:00 06/11/17 10:59 Objective Vital Signs Date Time Temp Pulse Resp B/P (MAP) Pulse Ox O2 Delivery O2 Flow Rate FiO2 05/12/17 08:01 36.9 81 18 105/54 (71) 93 05/12/17 08:00 Room Air 05/12/17 04:35 36.9 90 23 105/55 (72) 92 Room Air 05/12/17 04:00 Room Air 05/11/17 23:59 Room Air 05/11/17 23:35 37.2 89 20 110/51 (70) 94 Room Air 05/11/17 20:00 Room Air 05/11/17 19:16 36.7 70 20 120/58 (78) 98 Nasal Cannula 2.0 05/11/17 16:58 80 14 103/55 97 05/11/17 16:30 70 104/47 97 2.0 05/11/17 16:00 36.4 Room Air 05/11/17 16:00 36.6 79 91/62 98 05/11/17 16:00 Room Air 05/11/17 15:35 36.8 76 16 103/53 98 05/11/17 15:20 36.6 78 16 100/49 97 2.0 05/11/17 15:05 36.4 71 14 104/52 98 2.0 05/11/17 13:19 36.8 86 20 102/45 (64) 90 Room Air 05/11/17 12:31 77 20 119/44 (69) 93 Room Air 05/11/17 12:20 77 20 102/50 (67) 94 Room Air 05/11/17 12:15 76 20 116/52 (73) 94 Room Air 05/11/17 12:03 81 16 116/41 (66) 95 Room Air 05/11/17 11:56 84 20 100/47 (64) 94 Room Air 05/11/17 10:54 36.8 82 16 104/45 98 05/11/17 10:16 37.0 86 18 114/47 (69) 95 Room Air Physical Exam General Appearance: no apparent distress Eyes: PERRL ENT: hearing grossly normal Neck: supple, no JVD, trachea midline Respiratory/Chest: lungs clear, normal breath sounds, no respiratory distress, no accessory muscle use Cardiovascular: regular rate, rhythm, no edema, no gallop, no JVD Abdomen: normal bowel sounds, non tender, soft, no organomegaly, no pulsatile mass Neurologic/Psych: alert, normal mood/affect Skin: normal color, no jaundice, warm/dry, no rash Laboratory Results Last 24 Hours Test 05/11/17 13:11 05/11/17 13:42 05/11/17 17:52 05/11/17 19:08 Bedside Glucose 197 mg/dl 121 mg/dl Hemoglobin 6.6 g/dL 8.8 g/dL Hematocrit 18.9 % 24.9 % Test 05/11/17 23:45 05/12/17 05:41 05/12/17 06:08 Bedside Glucose 122 mg/dl 116 mg/dl White Blood Count 7.69 K/uL Red Blood Count 2.66 M/uL Hemoglobin 8.4 g/dL Hematocrit 24.0 % Mean Corpuscular Volume 90.2 fL Mean Corpuscular Hemoglobin 31.6 pg Mean Corpuscular Hemoglobin Concent 35.0 g/dl Platelet Count 185 K/uL Mean Platelet Volume 10.2 fL Neutrophils (%) (Auto) 53.3 % Lymphocytes (%) (Auto) 33.3 % Monocytes (%) (Auto) 11.2 % Eosinophils (%) (Auto) 1.7 % Basophils (%) (Auto) 0.1 % Neutrophils # (Auto) 4.10 K/uL Lymphocytes # (Auto) 2.56 K/uL Monocytes # (Auto) 0.86 K/uL Eosinophils # (Auto) 0.13 K/uL Basophils # (Auto) 0.01 K/uL RDW Standard Deviation 52.2 fL RDW Coefficient of Variation 16.2 % Immature Granulocyte % (Auto) 0.4 % Immature Granulocyte # (Auto) 0.03 K/uL Red Blood Cell Morphology Unremarkable Sodium Level 142 mmol/L Potassium Level 3.0 mmol/L Chloride Level 112 mmol/L Carbon Dioxide Level 21 mmol/L Anion Gap 9.0 mmol/L Blood Urea Nitrogen 56 mg/dl Creatinine 1.18 mg/dl Est Creatinine Clear Calc Drug Dose 28.6 ml/min Estimated GFR () 49.4 Estimated GFR (Non- 42.6 BUN/Creatinine Ratio 47.6 Random Glucose 118 mg/dl Calcium Level 8.2 mg/dl Assessment and Plan Patient is a 82 year old female w/ HCV, dementia admitted for anemia, report of melena. Pt is on PPI drip, s/p transfusion x 1 w/ HGB 7.9. BP 102/42 w/ pulse 62. EGD w/ clotted blood in the greater curvature of the stomach, an oozing duodenal ulcer treated w/ cautery. Has had one episode of black BM overnight. Clear liquids IV PPI x 48 hours Then PPO 40 mg BID Monitor CBC Monitor stools Transfuse PRN Continue other medications as prescribed. Dr. Putnam is covering this weekend.
[2017-05-12 11:48] VITALS: BP 117/45
[2017-05-12 11:52] VITALS: BP 108/69; PULSE 71; TEMP 36.4; O2SAT 95
[2017-05-12 16:14] VITALS: BP 114/57; PULSE 89; TEMP 36.5; O2SAT 94
[2017-05-12] MEDS: LACTATED RINGER'S 1000ML 1,000 ML IV SCH (17:00)
--- NOTE | 2017-05-12 17:48 | Progress Note ---
Internal Med Progress Note Date of Service: May 12, 2017. Provider Documentation: SUBJECTIVE: s/p egd yesterday resting comfortably on the chair and having clears no bloody bowel movement today no chest pain no sob no nausea OBJECTIVE: Vital Signs-as noted below Exam: General-alert and Oriented. Not in distress. ENT-Normal hearing Neck-no neck masses Lungs-cta b/l no wheezing or crackles Heart-s1 and s2 heard regular no murmurs Abdomen-soft bowel sounds present non tender no distension Extremities-no edema present and no erythema Neuro-alert and awake moves extremities Lab data as noted below. ASSESSMENT & PLAN: 1. Upper gastrointestinal bleeding. s/p egd:an oozing duodenal ulcer with adherent clot, treated with bipolar cautery. on ppi drip s/p two units of prbc f/u h and h closely hb 8.4 today started on clears monitor in tele. 2.Acute blood loss anemia from above s/p prbc hb 8.4 2. Hypertension. Blood pressure on the lower side.Will monitor 3. Acute renal failure on CKD stage 3 baseline cr 1.4 to 1.5 .presented with Cr 1.7 cr 1.1 today will f/u labs. 4. hypokalemia 'will replace. 5. History of HCV sp treatment. 6. Chronic obstructive pulmonary disease, past tobacco abuse pulmonary status baseline. 7. History of pheochromocytoma status post surgery. 7. DM2, diet controlled well controlled as of recent HgA1c of 5.9 from last year. 8. Asymptomatic pyuria DVT PROPHYLAXIS scds DISPOSITION monitor in tele Vital Signs: Date Time Temp Pulse Resp B/P (MAP) Pulse Ox O2 Delivery O2 Flow Rate FiO2 05/12/17 16:14 36.5 89 20 114/57 (76) 94 Room Air 05/12/17 16:00 Room Air 05/12/17 12:00 Room Air 05/12/17 11:52 36.4 71 18 108/69 (82) 95 05/12/17 08:01 36.9 81 18 105/54 (71) 93 05/12/17 08:00 Room Air 05/12/17 04:35 36.9 90 23 105/55 (72) 92 Room Air 05/12/17 04:00 Room Air 05/11/17 23:59 Room Air 3/1/18 23:35 37.2 89 20 110/51 (70) 94 Room Air 05/11/17 20:00 Room Air 05/11/17 19:16 36.7 70 20 120/58 (78) 98 Nasal Cannula 2.0 Lab Results: Results Past 24 Hours Test 05/11/17 17:52 05/11/17 19:08 05/11/17 23:45 05/12/17 05:41 Range/Units Bedside Glucose 121 122 116 70-90 mg/dl Hemoglobin 8.8 12.0-16.0 g/dL Hematocrit 24.9 37-47 % Test 05/12/17 06:08 05/12/17 11:47 05/12/17 16:15 Range/Units White Blood Count 7.69 4.8-10.8 K/uL Red Blood Count 2.66 4.2-5.4 M/uL Hemoglobin 8.4 12.0-16.0 g/dL Hematocrit 24.0 37-47 % Mean Corpuscular Volume 90.2 80-100 fL Mean Corpuscular Hemoglobin 31.6 25-34 pg Mean Corpuscular Hemoglobin Concent 35.0 32-36 g/dl Platelet Count 185 130-400 K/uL Mean Platelet Volume 10.2 7.4-10.4 fL Neutrophils (%) (Auto) 53.3 % Lymphocytes (%) (Auto) 33.3 % Monocytes (%) (Auto) 11.2 % Eosinophils (%) (Auto) 1.7 % Basophils (%) (Auto) 0.1 % Neutrophils # (Auto) 4.10 1.4-6.5 K/uL Lymphocytes # (Auto) 2.56 1.2-3.4 K/uL Monocytes # (Auto) 0.86 0.11-0.59 K/uL Eosinophils # (Auto) 0.13 0-0.5 K/uL Basophils # (Auto) 0.01 0-0.2 K/uL RDW Standard Deviation 52.2 36.4-46.3 fL RDW Coefficient of Variation 16.2 11.5-14.5 % Immature Granulocyte % (Auto) 0.4 % Immature Granulocyte # (Auto) 0.03 0.00-0.02 K/uL Red Blood Cell Morphology Unremarkable Sodium Level 142 136-145 mmol/L Potassium Level 3.0 3.5-5.1 mmol/L Chloride Level 112 98-107 mmol/L Carbon Dioxide Level 21 21-32 mmol/L Anion Gap 9.0 3-11 mmol/L Blood Urea Nitrogen 56 7-18 mg/dl Creatinine 1.18 0.60-1.20 mg/dl Est Creatinine Clear Calc Drug Dose 28.6 ml/min Estimated GFR () 49.4 Estimated GFR (Non- 42.6 BUN/Creatinine Ratio 47.6 10-20 Random Glucose 118 70-99 mg/dl Calcium Level 8.2 8.5-10.1 mg/dl Bedside Glucose 230 111 70-90 mg/dl
[2017-05-12 19:10] VITALS: BP 104/56; PULSE 75; TEMP 36.7; O2SAT 96
[2017-05-13] VITALS (10 sets, daily range): BP systolic 115–143; BP diastolic 58–82; PULSE 73–93; TEMP 36.4–37; O2SAT 90–96
[2017-05-13] MEDS: PANTOprazole INJ 40 MG in DEXTROSE 5% 100ML 100 ML IV SCH ×5 (03:33→21:30)
[2017-05-13 06:23] LABS: BASO % 0.1 %; BASO ABS # 0.01 K/uL (0-0.2); EOS % 4.5 %; EOS ABS # 0.35 K/uL (0-0.5); HEMATOCRIT 22.2 % (37-47); HEMOGLOBIN 7.8 g/dL (12.0-16.0); IG# 0.03 K/uL (0.00-0.02); LYMPH % 34.4 %; LYMPH ABS # 2.66 K/uL (1.2-3.4); MEAN CELL VOLUME 90.6 fL (80-100); MEAN CORPUSCULAR HEMOGLOBIN 31.8 pg (25-34); MEAN CORPUSCULAR HGB CONC 35.1 g/dl (32-36); MEAN PLATELET VOLUME 9.8 fL (7.4-10.4); MONO % 12.8 %; MONO ABS # 0.99 K/uL (0.11-0.59); NEUT % 47.8 %; NEUT ABS # 3.69 K/uL (1.4-6.5); PLATELET COUNT 182 K/uL (130-400); RED CELL DISTRIBUTION WIDTH CV 16.3 % (11.5-14.5); RED CELL DISTRIBUTION WIDTH SD 52.7 fL (36.4-46.3); WHITE BLOOD COUNT 7.73 K/uL (4.8-10.8)
[2017-05-13 07:04] LABS: CALCIUM 7.9 mg/dl (8.5-10.1); CREATININE 1.2 mg/dl (0.60-1.20); POTASSIUM 3.5 mmol/L (3.5-5.1)
[2017-05-13] MEDS: INSULIN ASPART 100 UNITS/ML 3 ML PEN SC SCH ×4 (07:37→21:00)
[2017-05-13] MEDS: CEROVITE ADV FORMULA TAB PO SCH ×3 (08:13→21:03)
[2017-05-13] MEDS ORDERED: FUROSEMIDE INJ 10 MG in SYRINGE 0 ML IV SCH (10:00)
[2017-05-13] MEDS ORDERED: ACETAMINOPHEN 325 MG TAB PO SCH (10:00)
[2017-05-13 10:30] LABS: HEMATOCRIT 22.5 % (37-47); HEMOGLOBIN 7.8 g/dL (12.0-16.0)
--- NOTE | 2017-05-13 13:09 | GASTROENTEROLOGY PROGRESS NOTE ---
DATE: 05/13/2017 CROSS COVERAGE FOR: [employer]. RACE: . SUBJECTIVE: I had the pleasure of seeing Haily Adame at her bedside today. She states that she is feeling much better. She denies any abdominal pain. She has not had a bowel movement overnight. She states that she is tolerating p.o. intake. PHYSICAL EXAMINATION: VITAL SIGNS: Includes temp 36.6, pulse 77, respirations 16, blood pressure 133/58, pulse ox 95% on room air. GENERAL: Awake, cooperative, no acute distress. ABDOMEN: Soft, nontender, nondistended. Positive bowel sounds. LABORATORY STUDIES: From today include a white blood cell count of 7.73, hemoglobin 7.8, hematocrit 22.2 and a platelet count of 182. IMPRESSION: An 82-year-old female status post upper endoscopy with endoscopic therapy for duodenal ulcer with no signs of overt gastrointestinal bleeding at present. PLAN: At the present time, I would recommend continuing her on a Protonix drip for a total of 72 hours. Continue to monitor CBC. She has had no bowel movements overnight and I would recommend transfusing her as needed to keep her H&H around 8 and 24. Once again, thanks for allowing me to participate in the care of this patient. If you have any further questions, please do not hesitate in contacting me.
--- NOTE | 2017-05-13 17:57 | Progress Note ---
Internal Med Progress Note Date of Service: May 13, 2017. Provider Documentation: SUBJECTIVE: no bowel movement yet eating ok' no nausea or abdominal pain no bloody vomiting no sob hemodynamics stable OBJECTIVE: Vital Signs-as noted below Exam: General-alert and Oriented. Not in distress. ENT-Normal hearing Neck-no neck masses Lungs-cta b/l no wheezing or crackles Heart-s1 and s2 heard regular no murmurs Abdomen-soft bowel sounds present non tender no distension Extremities-no edema present and no erythema Neuro-alert and awake moves extremities Lab data as noted below. ASSESSMENT & PLAN: 1. Upper gastrointestinal bleeding. s/p egd:an oozing duodenal ulcer with adherent clot, treated with bipolar cautery. on ppi drip s/p two units of prbc f/u h and h closely hb 7.8 today started on regular monitor in tele. 2.Acute blood loss anemia from above s/p prbc hb 7.8 will give one more unit prbc 2. Hypertension. Blood pressure on the lower side.Will monitor 3. Acute renal failure on CKD stage 3 baseline cr 1.4 to 1.5 .presented with Cr 1.7 cr 1.2 today will f/u labs. 4. hypokalemia 'will replace. 5. History of HCV sp treatment. 6. Chronic obstructive pulmonary disease, past tobacco abuse pulmonary status baseline. 7. History of pheochromocytoma status post surgery. 7. DM2, diet controlled well controlled as of recent HgA1c of 5.9 from last year. 8. Asymptomatic pyuria DVT PROPHYLAXIS scds DISPOSITION monitor in tele Vital Signs: Date Time Temp Pulse Resp B/P (MAP) Pulse Ox O2 Delivery O2 Flow Rate FiO2 05/13/17 15:20 36.8 78 20 137/65 (89) 96 Room Air 05/13/17 14:05 36.6 79 18 127/71 92 05/13/17 13:02 37.0 73 16 115/60 93 05/13/17 12:32 36.6 77 16 133/58 95 05/13/17 12:15 36.6 93 16 134/70 94 05/13/17 12:15 Room Air 05/13/17 12:09 37.0 77 16 133/60 (84) 93 Room Air 05/13/17 08:28 36.9 91 16 125/68 (87) 90 05/13/17 08:10 Room Air 05/13/17 04:00 Room Air 05/13/17 03:15 36.7 88 18 125/63 (83) 92 Room Air 05/13/17 00:18 36.8 87 18 129/65 (86) 93 Room Air 05/12/17 23:59 Room Air 05/12/17 19:55 Room Air 05/12/17 19:10 36.7 75 20 104/56 (72) 96 Room Air Lab Results: Results Past 24 Hours Test 05/12/17 20:38 05/13/17 05:48 05/13/17 06:44 05/13/17 10:05 Range/Units Bedside Glucose 183 119 70-90 mg/dl White Blood Count 7.73 4.8-10.8 K/uL Red Blood Count 2.45 4.2-5.4 M/uL Hemoglobin 7.8 7.8 12.0-16.0 g/dL Hematocrit 22.2 22.5 37-47 % Mean Corpuscular Volume 90.6 80-100 fL Mean Corpuscular Hemoglobin 31.8 25-34 pg Mean Corpuscular Hemoglobin Concent 35.1 32-36 g/dl Platelet Count 182 130-400 K/uL Mean Platelet Volume 9.8 7.4-10.4 fL Neutrophils (%) (Auto) 47.8 % Lymphocytes (%) (Auto) 34.4 % Monocytes (%) (Auto) 12.8 % Eosinophils (%) (Auto) 4.5 % Basophils (%) (Auto) 0.1 % Neutrophils # (Auto) 3.69 1.4-6.5 K/uL Lymphocytes # (Auto) 2.66 1.2-3.4 K/uL Monocytes # (Auto) 0.99 0.11-0.59 K/uL Eosinophils # (Auto) 0.35 0-0.5 K/uL Basophils # (Auto) 0.01 0-0.2 K/uL RDW Standard Deviation 52.7 36.4-46.3 fL RDW Coefficient of Variation 16.3 11.5-14.5 % Immature Granulocyte % (Auto) 0.4 % Immature Granulocyte # (Auto) 0.03 0.00-0.02 K/uL Pappenheimer Bodies 1+ [place] Bodies OCCASIONAL Sodium Level 142 136-145 mmol/L Potassium Level 3.5 3.5-5.1 mmol/L Chloride Level 112 98-107 mmol/L Carbon Dioxide Level 22 21-32 mmol/L Anion Gap 8.0 3-11 mmol/L Blood Urea Nitrogen 35 7-18 mg/dl Creatinine 1.20 0.60-1.20 mg/dl Est Creatinine Clear Calc Drug Dose 30.4 ml/min Estimated GFR () 48.4 Estimated GFR (Non- 41.8 BUN/Creatinine Ratio 29.0 10-20 Random Glucose 109 70-99 mg/dl Calcium Level 7.9 8.5-10.1 mg/dl Test 05/13/17 11:21 05/13/17 16:16 Range/Units Bedside Glucose 139 187 70-90 mg/dl
[2017-05-13] MEDS ORDERED: LORAZEPAM 0.5 MG TAB PO ONE (21:30)
[2017-05-14] VITALS (8 sets, daily range): BP systolic 130–149; BP diastolic 61–82; PULSE 81–89; TEMP 36.6–37.1; O2SAT 92–93
[2017-05-14] MEDS: PANTOprazole INJ 40 MG in DEXTROSE 5% 100ML 100 ML IV SCH ×4 (02:12→19:46)
[2017-05-14 06:50] LABS: CALCIUM 8.2 mg/dl (8.5-10.1); CREATININE 0.94 mg/dl (0.60-1.20); POTASSIUM 3.3 mmol/L (3.5-5.1)
[2017-05-14] MEDS: INSULIN ASPART 100 UNITS/ML 3 ML PEN SC SCH ×4 (07:00→21:09)
[2017-05-14 07:09] LABS: BASO % 0.3 %; BASO ABS # 0.03 K/uL (0-0.2); EOS % 5.2 %; EOS ABS # 0.54 K/uL (0-0.5); HEMATOCRIT 29.8 % (37-47); HEMOGLOBIN 10.6 g/dL (12.0-16.0); IG# 0.06 K/uL (0.00-0.02); LYMPH % 29.7 %; LYMPH ABS # 3.11 K/uL (1.2-3.4); MEAN CELL VOLUME 85.1 fL (80-100); MEAN CORPUSCULAR HEMOGLOBIN 30.3 pg (25-34); MEAN CORPUSCULAR HGB CONC 35.6 g/dl (32-36); MONO % 12.7 %; MONO ABS # 1.33 K/uL (0.11-0.59); NEUT % 51.5 %; PLATELET COUNT 215 K/uL (130-400); WHITE BLOOD COUNT 10.47 K/uL (4.8-10.8)
[2017-05-14] MEDS: CEROVITE ADV FORMULA TAB PO SCH ×2 (07:54→19:46)
[2017-05-14] MEDS ORDERED: POTASSIUM CHLORIDE 10 MEQ TABCR PO STA (08:58)
--- NOTE | 2017-05-14 11:11 | Progress Note ---
Internal Med Progress Note Date of Service: May 14, 2017. Provider Documentation: SUBJECTIVE: no bowel movement yet could not sleep well last night eating ok no nausea or abdominal pain no chest pain or sob asking when she can go home OBJECTIVE: Vital Signs-as noted below Exam: General-alert and Oriented. Not in distress. ENT-Normal hearing Neck-no neck masses Lungs-cta b/l no wheezing or crackles Heart-s1 and s2 heard regular no murmurs Abdomen-soft bowel sounds present non tender no distension Extremities-no edema present and no erythema Neuro-alert and awake moves extremities Lab data as noted below. ASSESSMENT & PLAN: 1. Upper gastrointestinal bleeding. s/p egd:an oozing duodenal ulcer with adherent clot, treated with bipolar cautery. on ppi drip s/p two units of prbc f/u h and h closely hb 7.8 05/13/17 s/p one units yesterday hb 10.6 tolerating regular will transfer to medical floor 2.Acute blood loss anemia from above s/p prbc hb 7.8 05/13/17 s/p one more unit prbc hb 10.6 today 2. Hypertension. Blood pressure on the lower side.Will monitor 3. Acute renal failure on CKD stage 3 baseline cr 1.4 to 1.5 .presented with Cr 1.7 cr 1.2 today will f/u labs. 4. hypokalemia 'will replace. 5. History of HCV sp treatment. 6. Chronic obstructive pulmonary disease, past tobacco abuse pulmonary status baseline. 7. History of pheochromocytoma status post surgery. 7. DM2, diet controlled well controlled as of recent HgA1c of 5.9 from last year. 8. Asymptomatic pyuria DVT PROPHYLAXIS scds DISPOSITION transfer to medical floor pt/ot possible d/c in am Vital Signs: Date Time Temp Pulse Resp B/P (MAP) Pulse Ox O2 Delivery O2 Flow Rate FiO2 05/14/17 08:36 36.6 89 20 146/73 (97) 92 Room Air 05/14/17 08:10 Room Air 05/14/17 04:00 92 Room Air 05/14/17 03:48 37.0 81 16 137/61 (86) 92 05/14/17 00:00 92 Room Air 05/14/17 00:00 36.6 82 18 149/73 (98) 92 Room Air 05/13/17 20:28 36.4 88 20 143/82 (102) 92 Room Air 05/13/17 19:50 Room Air 05/13/17 15:50 Room Air 05/13/17 15:20 36.8 78 20 137/65 (89) 96 Room Air 05/13/17 14:05 36.6 79 18 127/71 92 05/13/17 13:02 37.0 73 16 115/60 93 05/13/17 12:32 36.6 77 16 133/58 95 05/13/17 12:15 36.6 93 16 134/70 94 05/13/17 12:15 Room Air 05/13/17 12:09 37.0 77 16 133/60 (84) 93 Room Air Lab Results: Results Past 24 Hours Test 05/13/17 11:21 05/13/17 16:16 05/13/17 18:03 05/13/17 20:30 Range/Units Bedside Glucose 139 187 159 70-90 mg/dl Hemoglobin 10.0 12.0-16.0 g/dL Hematocrit 29.0 37-47 % Test 05/14/17 06:01 05/14/17 06:49 Range/Units White Blood Count 10.47 4.8-10.8 K/uL Red Blood Count 3.50 4.2-5.4 M/uL Hemoglobin 10.6 12.0-16.0 g/dL Hematocrit 29.8 37-47 % Mean Corpuscular Volume 85.1 80-100 fL Mean Corpuscular Hemoglobin 30.3 25-34 pg Mean Corpuscular Hemoglobin Concent 35.6 32-36 g/dl Platelet Count 215 130-400 K/uL Neutrophils (%) (Auto) 51.5 % Lymphocytes (%) (Auto) 29.7 % Monocytes (%) (Auto) 12.7 % Eosinophils (%) (Auto) 5.2 % Basophils (%) (Auto) 0.3 % Neutrophils # (Auto) 5.40 1.4-6.5 K/uL Lymphocytes # (Auto) 3.11 1.2-3.4 K/uL Monocytes # (Auto) 1.33 0.11-0.59 K/uL Eosinophils # (Auto) 0.54 0-0.5 K/uL Basophils # (Auto) 0.03 0-0.2 K/uL Immature Granulocyte % (Auto) 0.6 % Immature Granulocyte # (Auto) 0.06 0.00-0.02 K/uL Sodium Level 142 136-145 mmol/L Potassium Level 3.3 3.5-5.1 mmol/L Chloride Level 110 98-107 mmol/L Carbon Dioxide Level 23 21-32 mmol/L Anion Gap 9.0 3-11 mmol/L Blood Urea Nitrogen 19 7-18 mg/dl Creatinine 0.94 0.60-1.20 mg/dl Est Creatinine Clear Calc Drug Dose 35.9 ml/min Estimated GFR () 65.0 Estimated GFR (Non- 56.1 BUN/Creatinine Ratio 20.3 10-20 Random Glucose 105 70-99 mg/dl Calcium Level 8.2 8.5-10.1 mg/dl Bedside Glucose 110 70-90 mg/dl
[2017-05-14] MEDS: GUAIFENESIN SUGAR FREE 100 MG/5 ML UDC PO PRN (21:10)
[2017-05-15] MEDS: PANTOprazole INJ 40 MG in DEXTROSE 5% 100ML 100 ML IV SCH ×2 (00:40→05:51)
[2017-05-15 06:59] VITALS: BP 122/60; PULSE 82; TEMP 36.3; O2SAT 92
[2017-05-15 07:10] LABS: BASO % 0.2 %; BASO ABS # 0.02 K/uL (0-0.2); EOS % 3.3 %; HEMOGLOBIN 10.1 g/dL (12.0-16.0); IG# 0.04 K/uL (0.00-0.02); LYMPH % 19.8 %; LYMPH ABS # 1.78 K/uL (1.2-3.4); MEAN CELL VOLUME 86.8 fL (80-100); MEAN CORPUSCULAR HEMOGLOBIN 30.2 pg (25-34); MEAN CORPUSCULAR HGB CONC 34.8 g/dl (32-36); MEAN PLATELET VOLUME 9.9 fL (7.4-10.4); MONO % 12.7 %; MONO ABS # 1.14 K/uL (0.11-0.59); NEUT % 63.6 %; NEUT ABS # 5.69 K/uL (1.4-6.5); NUCLEATED RED BLOOD CELL ABS 0.07 K/uL (0-0); PLATELET COUNT 226 K/uL (130-400); RED CELL DISTRIBUTION WIDTH CV 20.7 % (11.5-14.5); RED CELL DISTRIBUTION WIDTH SD 60.5 fL (36.4-46.3); WHITE BLOOD COUNT 8.97 K/uL (4.8-10.8)
[2017-05-15 07:36] LABS: CALCIUM 7.7 mg/dl (8.5-10.1); POTASSIUM 3.5 mmol/L (3.5-5.1)
[2017-05-15] MEDS: INSULIN ASPART 100 UNITS/ML 3 ML PEN SC SCH ×2 (08:20→12:53)
[2017-05-15] MEDS: CEROVITE ADV FORMULA TAB PO SCH (08:23)
--- NOTE | 2017-05-15 10:06 | Gastroenterology Progress Note ---
Progress Note Date of Service: May 15, 2017 Subjective Pt evaluation today including: conversation w/ patient, physical exam, chart review, lab review PT was seen and evaluated, chart reviewed. Has completed 72h of IV PPI for duodenal ulcer. No further episode of GIB. Has not had a BM since . Is passing gas. Is tolerating diet, no abdominal pain, nausea, vomiting. H&H has been improving and stable at 01/08. Wants to go home. Denies fever, chills, CP, SOB. EGD: Normal esophagus, clotted blood in the greater curvature of the stomach, an oozing duodenal ulcer with adherent clot, treated with bipolar cautery. Review of Systems Constitutional: No fever, No chills Respiratory: No cough, No shortness of breath Cardiac: No chest pain, No edema Abdomen: No pain, No nausea, No vomiting, No diarrhea, No GI bleeding Skin: No rash Medications Current Inpatient Medications Medications (Trade) Dose Ordered Sig/Shilpi Route Start Time Stop Time Status Last Admin Dose Admin Acetaminophen (Tylenol Tab) 325 mg Q6H PRN PO 05/10/17 21:00 06/09/17 20:59 Nitroglycerin (Nitrostat Tab) 0.4 mg UD PRN SL 05/10/17 21:00 06/09/17 20:59 Glucose (Glucose 40% Gel) 15-30 GRAMS 15 GRAMS... UD PRN PO 05/10/17 21:00 06/09/17 20:59 Glucose (Glucose Chew Tab) 4-8 Tablets 4 Tabl... UD PRN PO 05/10/17 21:00 06/09/17 20:59 Dextrose (Dextrose 50% 50ML Syringe) 25-50ML OF 50% DW IV FOR... UD PRN IV 05/10/17 21:00 06/09/17 20:59 Glucagon (Glucagon Inj) 1 mg UD PRN SQ 05/10/17 21:00 06/09/17 20:59 Hydromorphone HCl (Dilaudid Inj) 0.5 mg Q3H PRN IV 05/10/17 21:00 05/24/17 20:59 Tramadol HCl (Ultram Tab) 25 mg Q6H PRN PO 05/10/17 21:00 06/09/17 20:59 Prochlorperazine Edisylate 5 mg/ Syringe 5 ml @ 5 mls/min Q6H PRN IV 05/10/17 21:00 06/09/17 20:59 Multivitamins/ Minerals (Multivitamin W/ Minerals Tab) 1 tab BID PO 05/10/17 21:00 06/09/17 20:59 05/15/17 08:23 1 TAB Pantoprazole Sodium 40 mg/ Dextrose 110 ml @ 20 mls/hr Q5H IV 05/10/17 23:30 06/09/17 23:29 05/15/17 05:51 20 MLS/HR Insulin Aspart (novoLOG ASPART) SLIDING SCALE If C... ACHS SC 05/12/17 11:00 06/11/17 10:59 05/13/17 17:32 1 UNITS Guaifenesin (Robitussin Sugar Free Syrup) 100 mg Q6H PRN PO 05/14/17 20:15 06/13/17 20:14 05/14/17 21:10 100 MG Objective Vital Signs Date Time Temp Pulse Resp B/P (MAP) Pulse Ox O2 Delivery O2 Flow Rate FiO2 05/15/17 06:59 36.3 82 20 122/60 (80) 92 Room Air 05/15/17 00:00 Room Air 05/14/17 23:01 37.1 87 20 138/82 (100) 93 Room Air 05/14/17 20:00 93 Room Air 05/14/17 16:30 Room Air 05/14/17 15:00 36.8 82 20 130/76 (94) 93 Room Air 05/14/17 12:02 36.6 89 20 92 Physical Exam General Appearance: no apparent distress Eyes: normal inspection ENT: hearing grossly normal Neck: supple, trachea midline Respiratory/Chest: lungs clear, normal breath sounds, no respiratory distress, no accessory muscle use Cardiovascular: regular rate, rhythm, no edema, no gallop, no JVD Abdomen: normal bowel sounds, non tender, soft, no organomegaly, no pulsatile mass Neurologic/Psych: alert, normal mood/affect, oriented x 3 Skin: normal color Laboratory Results Last 24 Hours Test 05/14/17 11:02 05/14/17 16:42 05/14/17 20:22 05/15/17 06:32 Bedside Glucose 144 mg/dl 138 mg/dl 149 mg/dl White Blood Count 8.97 K/uL Red Blood Count 3.34 M/uL Hemoglobin 10.1 g/dL Hematocrit 29.0 % Mean Corpuscular Volume 86.8 fL Mean Corpuscular Hemoglobin 30.2 pg Mean Corpuscular Hemoglobin Concent 34.8 g/dl Platelet Count 226 K/uL Mean Platelet Volume 9.9 fL Neutrophils (%) (Auto) 63.6 % Lymphocytes (%) (Auto) 19.8 % Monocytes (%) (Auto) 12.7 % Eosinophils (%) (Auto) 3.3 % Basophils (%) (Auto) 0.2 % Neutrophils # (Auto) 5.69 K/uL Lymphocytes # (Auto) 1.78 K/uL Monocytes # (Auto) 1.14 K/uL Eosinophils # (Auto) 0.30 K/uL Basophils # (Auto) 0.02 K/uL RDW Standard Deviation 60.5 fL RDW Coefficient of Variation 20.7 % Immature Granulocyte % (Auto) 0.4 % Immature Granulocyte # (Auto) 0.04 K/uL Nucleated RBC Absolute Count (auto) 0.07 K/uL Nucleated Red Blood Cells % 0.8 % Anisocytosis PRESENT Sodium Level 142 mmol/L Potassium Level 3.5 mmol/L Chloride Level 111 mmol/L Carbon Dioxide Level 23 mmol/L Anion Gap 8.0 mmol/L Blood Urea Nitrogen 13 mg/dl Creatinine 1.00 mg/dl Est Creatinine Clear Calc Drug Dose 33.7 ml/min Estimated GFR () 60.3 Estimated GFR (Non- 52.1 BUN/Creatinine Ratio 13.4 Random Glucose 104 mg/dl Calcium Level 7.7 mg/dl Test 05/15/17 07:51 Bedside Glucose 107 mg/dl Assessment and Plan Patient is a 82 year old female w/ HCV, dementia admitted for anemia, report of melena. Pt is on PPI drip, s/p transfusion x 1 w/ HGB 7.9. BP 102/42 w/ pulse 62. EGD w/ clotted blood in the greater curvature of the stomach, an oozing duodenal ulcer treated w/ cautery. Last BM was black BM overnight. Diet as tolerated DC IV PPI x 48 hours Omeprazole 40 mg BID x 2 months Then Omeprazole 40 mg daily GI to sign off. No GI contraindication to discharge. Please call with any questions or concerns Attg add: I interviewed and examined pt, reviewed chart and labs. Pt without any recurrence of anemia. Hp neg, no NSAID use. Please cont once PPI daily indefinitely. Re-consult with questions.
[2017-05-15] MEDS: GUAIFENESIN SUGAR FREE 100 MG/5 ML UDC PO PRN (10:35)
[2017-05-15] MEDS ORDERED: OMEP40CA41 PO (14:16)
--- NOTE | 2017-05-15 14:20 | Discharge Instructions ---
Discharge Instructions Date of Service May 15, 2017. Admission Reason for Admission: UGIB Discharge Discharge Diagnosis / Problem: UGI bleed, acute blood loss anemia Discharge Goals Goal(s): Decrease discomfort, Improve function Activity Recommendations Activity Limitations: resume your previous activity . Instructions / Follow-Up Instructions / Follow-Up FOLLOWUP WITH FAMILY DOCTOR ON May AT 12:45PM. HOLD ASPIRIN FOR 3 - 4 DAYS AND RESUME. STOPPING AMLODIPINE AND HYDROCHLOROTHIAZIDE(HCTZ) BLOOD PRESSURE MEDICATIONS UNTIL SEEN BY FAMILY DOCTOR. TO RESUME PER FAMILY DOCTOR. AVOID NSAID'S LIKE IBUPROFEN, ALEVE, MOTRIN, NAPROSYN THEY CAN CAUSE GASTRIC ULCERS, KIDNEY FAILURE AND HEART ATTACKS ON PROLONG USE. TO TAKE OMEPRAZOLE 40MG TWICE DAILY FOR 2 MONTHS AND THEN ONCE DAILY Current Hospital Diet Patient's current hospital diet: Regular Diet, AHA Diet (Heart Healthy) Discharge Diet Recommended Diet: AHA Diet (Heart Healthy) Pending Studies Studies pending at discharge: no Laboratory Results Hemoglobin A1c Test 05/10/17 15:40 Range/Units Estimated Average Glucose 126 mg/dl Hemoglobin A1c 6.0 H 4.5-5.6 % Medical Emergencies . Who to Call and When: Medical Emergencies: If at any time you feel your situation is an emergency, please call 911 immediately. . Non-Emergent Contact Non-Emergency issues call your: Primary Care Provider . . "Provider Documentation" section prepared by Panda Yip. .
[2017-05-15 14:59] VITALS: BP 122/60; PULSE 82; TEMP 36.3; O2SAT 92
--- NOTE | 2017-05-15 18:44 | Progress Note ---
Internal Med Progress Note Date of Service: May 15, 2017. Provider Documentation: SUBJECTIVE: sitting on the chair comfortably eating fine no sob or chest pain afebrile ok for discharge OBJECTIVE: Vital Signs-as noted below Exam: General-alert and Oriented. Not in distress. ENT-Normal hearing Neck-no neck masses Lungs-cta b/l no wheezing or crackles Heart-s1 and s2 heard regular no murmurs Abdomen-soft bowel sounds present non tender no distension Extremities-no edema present and no erythema Neuro-alert and awake moves extremities Lab data as noted below. ASSESSMENT & PLAN: 1. Upper gastrointestinal bleeding. s/p egd:an oozing duodenal ulcer with adherent clot, treated with bipolar cautery. on ppi drip s/p two units of prbc f/u h and h closely hb 7.8 05/13/17 s/p one more units prbc hb 10.2 tolerating regular discharged on omeprazole 40mg bid for 2 months and then once daily 2.Acute blood loss anemia from above s/p prbc hb 7.8 05/13/17 s/p one more unit prbc hb 10.2 today 2. Hypertension. Blood pressure on the lower side.Will monitor 3. Acute renal failure on CKD stage 3 baseline cr 1.4 to 1.5 .presented with Cr 1.7 cr 1.2 today will f/u labs. 4. hypokalemia 'will replace. 5. History of HCV sp treatment. 6. Chronic obstructive pulmonary disease, past tobacco abuse pulmonary status baseline. 7. History of pheochromocytoma status post surgery. 7. DM2, diet controlled well controlled as of recent HgA1c of 5.9 from last year. 8. Asymptomatic pyuria discharged home Vital Signs: Date Time Temp Pulse Resp B/P (MAP) Pulse Ox O2 Delivery O2 Flow Rate FiO2 05/15/17 14:59 36.3 82 20 92 Room Air 05/15/17 08:00 Room Air 05/15/17 06:59 36.3 82 20 122/60 (80) 92 Room Air 05/15/17 00:00 Room Air 05/14/17 23:01 37.1 87 20 138/82 (100) 93 Room Air 05/14/17 20:00 93 Room Air Lab Results: Results Past 24 Hours Test 05/14/17 20:22 05/15/17 06:32 05/15/17 07:51 05/15/17 11:20 Range/Units Bedside Glucose 149 107 134 70-90 mg/dl White Blood Count 8.97 4.8-10.8 K/uL Red Blood Count 3.34 4.2-5.4 M/uL Hemoglobin 10.1 12.0-16.0 g/dL Hematocrit 29.0 37-47 % Mean Corpuscular Volume 86.8 80-100 fL Mean Corpuscular Hemoglobin 30.2 25-34 pg Mean Corpuscular Hemoglobin Concent 34.8 32-36 g/dl Platelet Count 226 130-400 K/uL Mean Platelet Volume 9.9 7.4-10.4 fL Neutrophils (%) (Auto) 63.6 % Lymphocytes (%) (Auto) 19.8 % Monocytes (%) (Auto) 12.7 % Eosinophils (%) (Auto) 3.3 % Basophils (%) (Auto) 0.2 % Neutrophils # (Auto) 5.69 1.4-6.5 K/uL Lymphocytes # (Auto) 1.78 1.2-3.4 K/uL Monocytes # (Auto) 1.14 0.11-0.59 K/uL Eosinophils # (Auto) 0.30 0-0.5 K/uL Basophils # (Auto) 0.02 0-0.2 K/uL RDW Standard Deviation 60.5 36.4-46.3 fL RDW Coefficient of Variation 20.7 11.5-14.5 % Immature Granulocyte % (Auto) 0.4 % Immature Granulocyte # (Auto) 0.04 0.00-0.02 K/uL Nucleated RBC Absolute Count (auto) 0.07 0-0 K/uL Nucleated Red Blood Cells % 0.8 % Anisocytosis PRESENT Sodium Level 142 136-145 mmol/L Potassium Level 3.5 3.5-5.1 mmol/L Chloride Level 111 98-107 mmol/L Carbon Dioxide Level 23 21-32 mmol/L Anion Gap 8.0 3-11 mmol/L Blood Urea Nitrogen 13 7-18 mg/dl Creatinine 1.00 0.60-1.20 mg/dl Est Creatinine Clear Calc Drug Dose 33.7 ml/min Estimated GFR () 60.3 Estimated GFR (Non- 52.1 BUN/Creatinine Ratio 13.4 10-20 Random Glucose 104 70-99 mg/dl Calcium Level 7.7 8.5-10.1 mg/dl
--- NOTE | 2017-05-15 18:47 | Discharge Summary ---
Discharge Summary Date of Service May 15, 2017. Discharge Summary Admission Date: May 10, 2017 at 20:16 Discharge Date: May 15, 2017 Discharge Disposition: Home with services Principal Diagnosis: UGIB Acute blood loss anemia Secondary Diagnoses/Problems: (1) Cataract, right eye Status: Resolved (2) Chronic hepatitis C Status: Chronic (3) COPD (chronic obstructive pulmonary disease) Status: Chronic (4) DM II (diabetes mellitus, type II), controlled Status: Chronic (5) H/O cataract Status: Chronic (6) HTN (hypertension) Status: Chronic (7) Lewy body dementia with behavioral disturbance Status: Chronic Procedures: ct head: No acute intracranial findings. CXR: No acute cardiopulmonary findings S/P EGD Consultations: GI Medication Reconciliation New Medications: Omeprazole (Prilosec) 40 Mg Cap 40 MG PO BID for 30 Days, #1 CAP Continued Medications: Aspirin (Aspirin Ec) 81 Mg Tab 81 MG PO DAILY Calcium Carbonate-Vitamin D (Calcium + D3 600-200 mg-Unit) 1 Tab Tab 1 TAB PO BID Irbesartan (Irbesartan) 300 Mg Tab 300 MG PO DAILY, TAB Melatonin (Melatonin) 3 Mg Cap 3 MG PO HS PRN for Insomnia Multiple Vitamins W/ Minerals (Ocuvite) 1 Tab Tab 1 TAB PO BID Discontinued Medications: Amlodipine (Norvasc) 10 Mg Tab 10 MG PO DAILY, TAB Hydrochlorothiazide (Hydrochlorothiazide) 12.5 Mg Tab 12.5 MG PO DAILY, TAB Naproxen Sodium-Diphenhydramin (Aleve Pm 220-25 mg) 1 Tab Tab 1 TAB PO HS PRN for Sleep Admission Information HPI (per Admitting provider): This is an 82yo F with a PMH of HTN, DM II (diet controlled), chronic hepatitis C, Lewy Body dementia who presents with multiple episodes of black stool x 2 days. Patient started feeling poorly 3 nights ago, endorsing fatigue and generalized weakness. Had a mechanical fall while walking to the restroom. Denies any trauma to her head or LOC. Over the next 2 days, patient endorses multiple small black stools. Associated lightheadedness and blurred vision. Denies any syncopal episodes, palpitations or SOB. No abdominal pain, nausea or vomiting. Daughter and son-in-law noticed that patient seemed more tired and weak and brought her into ED for further evaluation. Denies history of GI bleeds. Takes a baby aspirin daily and Advil PM to sleep PRN. Has been living with her daughter and son-in-law since her a few weeks ago. Physical Exam (per Admitting): General Appearance: WD/WN, no apparent distress, + pertinent finding (+ pallor, breathing comfortably on room air ) Head: normocephalic, atraumatic Eyes: normal inspection, PERRL, sclerae normal ENT: normal ENT inspection, hearing grossly normal, pharynx normal (dry mucous membranes ) Neck: supple, thyroid normal, trachea midline Respiratory/Chest: chest non-tender, lungs clear, normal breath sounds, no respiratory distress, no accessory muscle use Cardiovascular: regular rate, rhythm, no murmur, normal peripheral pulses Abdomen/GI: non tender, soft, no organomegaly Back: normal inspection Extremities/Musculoskelatal: normal inspection, no calf tenderness, no pedal edema Neurologic/Psych: no motor/sensory deficits, alert, normal mood/affect, oriented x 3 Skin: warm/dry, + pallor Hospital Course 1. Upper gastrointestinal bleeding. s/p egd:an oozing duodenal ulcer with adherent clot, treated with bipolar cautery. on ppi drip s/p two units of prbc f/u h and h closely hb 7.8 3/3/18 s/p one more units prbc hb 10.2 tolerating regular discharged on omeprazole 40mg bid for 2 months and then once daily 2.Acute blood loss anemia from above s/p prbc hb 7.8 3/3/18 s/p one more unit prbc hb 10.2 today 2. Hypertension. Blood pressure on the lower side.HOLDING AMLODIPINE AND HX= CTZ AT DISCHARGE AND RESTARTED IRBESARTAN.F/U WITH PCP 3. Acute renal failure on CKD stage 3 baseline cr 1.4 to 1.5 .presented with Cr 1.7 cr 1.2 today will f/u labs. 4. hypokalemia 'will replace. 5. History of HCV sp treatment. 6. Chronic obstructive pulmonary disease, past tobacco abuse pulmonary status baseline. 7. History of pheochromocytoma status post surgery. 7. DM2, diet controlled well controlled as of recent HgA1c of 5.9 from last year. 8. Asymptomatic pyuria discharged home Total time spent on discharge = 35MINUTES This includes examination of the patient, discharge planning, medication reconciliation, and communication with other providers. Discharge Instructions Discharge Instructions Date of Service May 15, 2017. Admission Reason for Admission: UGIB Discharge Discharge Diagnosis / Problem: UGI bleed, acute blood loss anemia Discharge Goals Goal(s): Decrease discomfort, Improve function Activity Recommendations Activity Limitations: resume your previous activity . Instructions / Follow-Up Instructions / Follow-Up FOLLOWUP WITH FAMILY DOCTOR ON May AT 12:45PM. HOLD ASPIRIN FOR 3 - 4 DAYS AND RESUME. STOPPING AMLODIPINE AND HYDROCHLOROTHIAZIDE(HCTZ) BLOOD PRESSURE MEDICATIONS UNTIL SEEN BY FAMILY DOCTOR. TO RESUME PER FAMILY DOCTOR. AVOID NSAID'S LIKE IBUPROFEN, ALEVE, MOTRIN, NAPROSYN THEY CAN CAUSE GASTRIC ULCERS, KIDNEY FAILURE AND HEART ATTACKS ON PROLONG USE. TO TAKE OMEPRAZOLE 40MG TWICE DAILY FOR 2 MONTHS AND THEN ONCE DAILY Current Hospital Diet Patient's current hospital diet: Regular Diet, AHA Diet (Heart Healthy) Discharge Diet Recommended Diet: AHA Diet (Heart Healthy) Pending Studies Studies pending at discharge: no Laboratory Results Hemoglobin A1c Test 05/10/17 15:40 Range/Units Estimated Average Glucose 126 mg/dl Hemoglobin A1c 6.0 H 4.5-5.6 % Medical Emergencies . Who to Call and When: Medical Emergencies: If at any time you feel your situation is an emergency, please call 911 immediately. . Non-Emergent Contact Non-Emergency issues call your: Primary Care Provider . . "Provider Documentation" section prepared by Panda Yip. .
[2017-05-15] MEDS ORDERED: PANTOprazole SOD 40 MG TAB PO SCH (20:00)
== END 2017-05-15 15:45 | disposition home or self-care (01) | DRG 378 ==
LOC: C.EDB 14:42 → C.EDINP 20:16 → ENRESERV 05-11 08:48 → C.2E 05-11 13:29 → C.MS4W 05-14 11:11 → ENRESERV 05-14 11:45
PROVIDERS: ADMIT Internal Medicine; ATTEND Internal Medicine
PROC: 0DB68ZX Excision of Stomach, Via Natural or Artificial Opening Endoscopic, Diagnostic (ICD-10-PCS; principal; 2017-05-11 11:00)
PROC: 0W3P8ZZ Control Bleeding in Gastrointestinal Tract, Via Natural or Artificial Opening Endoscopic (ICD-10-PCS; principal; 2017-05-11 11:00)
DX: K26.4 Chronic or unspecified duodenal ulcer with hemorrhage (principal); N17.9 Acute kidney failure, unspecified; N39.0 Urinary tract infection, site not specified; D62 Acute posthemorrhagic anemia; I12.9 Hypertensive chronic kidney disease with stage 1 through stage 4 chronic kidney disease, or unspecified chronic kidney disease; E11.22 Type 2 diabetes mellitus with diabetic chronic kidney disease; N18.3 Chronic kidney disease, stage 3 (moderate); E87.6 Hypokalemia; G31.83 Neurocognitive disorder with Lewy bodies; F02.80 Dementia in other diseases classified elsewhere, unspecified severity, without behavioral disturbance, psychotic disturbance, mood disturbance, and anxiety; B18.2 Chronic viral hepatitis C; J44.9 Chronic obstructive pulmonary disease, unspecified; Z79.82 Long term (current) use of aspirin; Z79.899 Other long term (current) drug therapy; Z91.81 History of falling; Z87.891 Personal history of nicotine dependence; Z72.89 Other problems related to lifestyle